=== PATIENT | male | born 1930 | race Caucasian/White ===

== ENCOUNTER → 2016-12-22 | Outpatient (REF) | payer MEDICARE, MEDICAID ==
[~2016-12-22] MED LIST: ACET650T2 PO; AGGR1CAP PO; ALEV220C2 PO; AMLO10TA2 PO; ASPI32ECTA PO; FERR325T PO; FURO20TA2 PO; GABA-279 PO; GABA300C3 PO; IMOD2TAB16 PO; LEVO25TA34 PO; LISI10TA4 PO; LISI20TA PO; MIRT1TAB PO; OMEP40CA2 PO; SERT-138 PO; SERT-141 PO; SIME80TA PO; TAMS0.4C2 PO; TYLE650T25 PO; VITA10002 PO; VITA100066 PO; VITA100072 PO; XARE15TA PO
== END ==
LOC: M LAB REF 12:27
PROVIDERS: ATTEND Nurse Practitioner Adult Health
DX: R20.9 Unspecified disturbances of skin sensation (principal); R39.15 Urgency of urination

== ENCOUNTER 2017-04-16 14:52 | Emergency (ER) | payer MEDICARE, MEDICAID ==
[~2017-04-16 14:52] MED LIST changes: +GABA-282 PO; -GABA300C3 PO; -SERT-141 PO; +SERT50TA PO
[2017-04-16] MEDS ORDERED: TORS20TA2 PO (15:25)
[2017-04-16] MEDS ORDERED: DONETAB6 PO (15:25)
[2017-04-16 16:03] LABS: BASO % 0.3 % (0.0-1.0); EOS # 0.6 K/mm3 (0.0-0.50); EOS % 7.1 % (0.0-3.0); LARGE UNSTAINED CELL # 0.1 K/mm3 (0.0-0.4); LARGE UNSTAINED CELL % 1.2 % (0.0-4.0); LYMPH # 1.1 K/mm3 (1.5-4.5); LYMPH % 12.7 % (24.0-44.0); MEAN CORPUSCULAR HEMOGLOBIN 28.2 pg (27.0-33.0); MEAN CORPUSCULAR VOLUME 85.3 fl (80.0-96.0); MONO # 0.5 K/mm3 (0.0-0.8); MONO % 5.7 % (0.0-5.0); NEUTROPHILS # 5.9 K/mm3 (1.8-7.7); NEUTROPHILS % 73.1 % (36.0-66.0); PLATELET COUNT, AUTOMATED 168 k/mm3 (150-450); RED CELL DISTRIBUTION WIDTH 15.1 % (11.5-14.5); WHITE BLOOD COUNT 8.1 K/mm3 (4.0-10.0)
[2017-04-16 16:45] LABS: CALCIUM LEVEL 9.3 MG/DL (8.8-10.2); CREATININE FOR GFR 1.48 MG/DL (0.70-1.30); POTASSIUM SERUM 4.4 MEQ/L (3.5-5.1)
--- NOTE | 2017-04-16 16:51 | REP ---
Portable chest x-ray: Single view: History: Chest pain. Comparison chest x-rays from 06/25/2016. Findings: EKG monitoring electrodes overlie the chest. The patient status post prior sternotomy. Heart is not enlarged. Right hemidiaphragm is a little elevated. No acute infiltrate is seen. There are a few loops of air-filled bowel in the left upper abdomen. The appearance of the left hemidiaphragm suggests the presence of free intraperitoneal air. This is similar in appearance to the radiographs taken at the time of one previous CT studies have shown marked pneumatosis and possible free air. Impression: Findings suggestive of uncontained free intraperitoneal air under the left hemidiaphragm. Prior sternotomy. Otherwise no acute disease. Findings discussed with Dr. Whyte on the telephone at the time of this dictation. Signed by Sudarshan Goss MD 04/16/2017 04:55 P
[2017-04-16] MEDS ORDERED: GASTROGRAFIN SOLUTION 30ML (Q9963) PO ONE (17:25)
[2017-04-16] MEDS ORDERED: GASTROGRAFIN SOLUTION 30ML PO ONE (17:55)
[2017-04-16] MEDS ORDERED: ISOVUE-370 76% 100ML VIAL (Q9967) As Ordered ONE (18:38)
--- NOTE | 2017-04-16 19:50 | REPUSA ---
CLINICAL HISTORY: Free air on chest x-ray. TECHNIQUE: Multiple axial CT images were obtained through the abdomen and pelvis after administratio n of IV contrast material. FINDINGS: Comparison is made with the prior study dated 07/16/2016. 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 There are areas of free air present under the right hem idiaphragm. There are scattered areas of air noted throughout the peritoneum. The liver is of uniform attenuation without mass or defect. There is no intra or extrahepatic biliar y ductal dilatation. Multiple calcified splenic granulomas are present. Status post cholecystecto my. The pancreas is of normal contour and attenuation characteristics. There is no evidence of adre nal mass. The kidneys are normal in size, shape and configuration. No renal or ureteral calculi are identified . There is no hydroureter or hydronephrosis. There is no evidence for appendicitis. There is no bowel wall thickening. No evidence for small or large bowel obstruction. There is no evidence of abdominal ascites or lymphadenopathy. Status post ventral abdominal hernia repair. Small fat containing umbilical hernia is noted. There is no evidence of intrinsic or extrinsic bladder mass. There is no pelvic ascites or lymphaden opathy. The prostate gland is mildly enlarged containing calcifications. Images of the lung bases show no evidence of pleural or parenchymal mass. There are no pleural effus ions. There is mild increase in interstitial lung markings present throughout the visualized lung f ields suggesting pulmonary fibrosis. The bony structures are free of lytic or blastic lesions. IMPRESSION: A large amount of free air which is a chronic process. This was seen on the prior study but has pro gressed. Additional findings as above. Thank you for your kind referral of this patient. We appreciate the opportunity to participate in thi s patient's care.
[2017-04-16 20:47] VITALS: BP 152/95
--- NOTE | 2017-04-17 15:06 | ED PDOC ---
Post-Departure Follow-Up DR DANIELS FAXED FORMAL REPORT OF CT ABD/P FOR FU Zay Richter MD Apr 17, 2017 15:06
--- NOTE | 2017-04-18 19:12 | ECGEPIP ---
Stationary ECG Study 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
== END 2017-04-16 20:48 | disposition home or self-care (01) ==
LOC: M ED 17:18
DX: K63.89 Other specified diseases of intestine (principal); F03.90 Unspecified dementia, unspecified severity, without behavioral disturbance, psychotic disturbance, mood disturbance, and anxiety; I11.0 Hypertensive heart disease with heart failure; I48.91 Unspecified atrial fibrillation; I25.10 Atherosclerotic heart disease of native coronary artery without angina pectoris; I50.9 Heart failure, unspecified; Z86.73 Personal history of transient ischemic attack (TIA), and cerebral infarction without residual deficits; Z90.49 Acquired absence of other specified parts of digestive tract; Z79.899 Other long term (current) drug therapy
CPT/HCPCS: 36415; 71010; 74177; 80048; 82550; 82553; 84443; 84484; 85025; 93005; 93041; 94760; 99285; Q9963; Q9967

== ENCOUNTER → 2017-05-04 | Outpatient (REF) | payer MEDICARE, MEDICAID ==
[~2017-05-04] MED LIST changes: +DONETAB6 PO; +TORS20TA2 PO
[2017-05-04 11:00] LABS: ALBUMIN 3.4 GM/DL (3.2-5.2); ALBUMIN/GLOBULIN RATIO 0.97 (1.00-1.93); BILIRUBIN,TOTAL 0.4 MG/DL (0.2-1.0); CALCIUM LEVEL 8.7 MG/DL (8.8-10.2); CREATININE FOR GFR 1.4 MG/DL (0.70-1.30); POTASSIUM SERUM 4.3 MEQ/L (3.5-5.1); TOTAL PROTEIN 6.9 GM/DL (6.4-8.2)
== END ==
PROVIDERS: ATTEND Nurse Practitioner Family
DX: I50.9 Heart failure, unspecified (principal)

== ENCOUNTER → 2017-06-15 | Outpatient (REF) | payer MEDICARE, MEDICAID ==
[~2017-06-15] MED LIST changes: -ACET650T2 PO; +ACET650T3 PO; +ASPI325T24 PO; -ASPI32ECTA PO; +FERR1TAB8 PO; -FERR325T PO
[2017-06-15 11:15] LABS: ALBUMIN 3.5 GM/DL (3.2-5.2); ALBUMIN/GLOBULIN RATIO 1.21 (1.00-1.93); BILIRUBIN,TOTAL 0.3 MG/DL (0.2-1.0); CALCIUM LEVEL 8.3 MG/DL (8.8-10.2); CREATININE FOR GFR 1.29 MG/DL (0.70-1.30); GLOMERULAR FILTRATION RATE 56.1 (>35); POTASSIUM SERUM 3.7 MEQ/L (3.5-5.1); TOTAL PROTEIN 6.4 GM/DL (6.4-8.2)
== END ==
PROVIDERS: ATTEND Nurse Practitioner Family
DX: R60.0 Localized edema (principal); M79.669 Pain in unspecified lower leg

== ENCOUNTER → 2017-07-06 | Outpatient (REF) | payer MEDICARE, MEDICAID ==
[2017-07-06 11:02] LABS: ALBUMIN 3.1 GM/DL (3.2-5.2); ALBUMIN/GLOBULIN RATIO 0.97 (1.00-1.93); BILIRUBIN,TOTAL 0.3 MG/DL (0.2-1.0); CALCIUM LEVEL 8.7 MG/DL (8.8-10.2); CREATININE FOR GFR 1.44 MG/DL (0.70-1.30); GLOMERULAR FILTRATION RATE 49.4 (>35); POTASSIUM SERUM 3.9 MEQ/L (3.5-5.1); TOTAL PROTEIN 6.3 GM/DL (6.4-8.2)
== END ==
PROVIDERS: ATTEND Nurse Practitioner Family
DX: I50.9 Heart failure, unspecified (principal)

== ENCOUNTER → 2017-07-14 | Outpatient (REF) | payer MEDICARE, MEDICAID ==
[2017-07-14 20:21] LABS: FOLATE 16.2 NG/ML
== END ==
LOC: M LAB REF 16:45
PROVIDERS: ATTEND Internal Medicine
DX: G60.9 Hereditary and idiopathic neuropathy, unspecified (principal)

== ENCOUNTER 2017-09-01 09:16 | Outpatient (RCR) | payer MEDICARE, MEDICAID | END 2017-09-07 | LOC: M PT 09:16 | PROVIDERS: ATTEND Nurse Practitioner Family | DX: R26.81 Unsteadiness on feet (principal) | CPT/HCPCS: 97110; 97112; 97162; 97530; G8978; G8979 ==

== ENCOUNTER 2017-09-08 09:14 | Outpatient (RCR) | payer MEDICARE, MEDICAID ==
[2017-09-30] MEDS ORDERED: PREG100CA PO (17:54)
[2017-09-30] MEDS ORDERED: TOPR25TA PO (17:54)
[2017-09-30] MEDS ORDERED: DIGO0.12 PO (17:54)
[2017-09-30] MEDS ORDERED: PREG50CA PO (18:52)
[2017-09-30] MEDS ORDERED: TUMS500C PO (18:52)
[2017-09-30] MEDS ORDERED: BENCRE3 TOP (18:52)
[2017-09-30] MEDS ORDERED: BENZ100C5 PO (18:52)
[2017-09-30] MEDS ORDERED: MIRA33504 PO (18:52)
[2017-10-11] MEDS ORDERED: TORS20TA2 PO (08:56)
[2017-10-11] MEDS ORDERED: LISI-542 PO (08:56)
== END 2017-10-07 ==
LOC: M PT 09:14
PROVIDERS: ATTEND Nurse Practitioner Family
DX: R26.81 Unsteadiness on feet (principal)

== ENCOUNTER 2017-09-30 17:29 | Inpatient (IN) | payer MEDICARE, MEDICAID ==
[2017-09-30 17:58] LABS: BASO % 0.3 % (0.0-1.0); EOS # 0.2 10^3/uL (0.0-0.50); EOS % 1.6 % (0.0-3.0); IMMATURE GRANULOCYTE % 0.3 % (0-0); LYMPH % 7.3 % (24.0-44.0); MEAN CORPUSCULAR HEMOGLOBIN 27.9 pg (27.0-33.0); MEAN CORPUSCULAR HGB CONC 33.2 g/dl (32.0-36.5); MONO # 0.8 10^3/uL (0.0-0.8); MONO % 6.2 % (0.0-5.0); NEUTROPHILS # 11.3 10^3/uL (1.8-7.7); NEUTROPHILS % 84.3 % (36.0-66.0); PLATELET COUNT, AUTOMATED 170 10^3/uL (150-450); RED CELL DISTRIBUTION WIDTH 15.9 % (11.5-14.5); WHITE BLOOD COUNT 13.4 10^3/uL (4.0-10.0)
[2017-09-30 18:00] LABS: VENOUS BASE EXCESS -1.3 (-2.0-2.0); VENOUS O2 SATURATION 40.5 % (60.0-80.0); VENOUS PARTIAL PRESSURE CO2 40.2 mmHg (38.0-50.0); VENOUS STANDARD HCO3 21.9 MEQ/L; VENOUS TOTAL CO2 24.8 MEQ/L (24.0-28.0)
[2017-09-30 18:18] LABS: INR 1.09
[2017-09-30 18:25] LABS: ALBUMIN 3.6 GM/DL (3.2-5.2); ALKALINE PHOSPHATASE 108 U/L (45-117); ALT/SGPT 27 U/L (12-78); ANION GAP 8 MEQ/L (8-16); AST/SGOT 38 U/L (7-37); BILIRUBIN,DIRECT 0.1 MG/DL (0.0-0.2); BILIRUBIN,TOTAL 0.3 MG/DL (0.2-1.0); BLOOD UREA NITROGEN 21 MG/DL (7-18); CALCIUM LEVEL 8.9 MG/DL (8.8-10.2); CARBON DIOXIDE LEVEL 32 MEQ/L (21-32); CHLORIDE LEVEL 103 MEQ/L (98-107); CREATININE FOR GFR 1.47 MG/DL (0.70-1.30); GLOMERULAR FILTRATION RATE 48.2 (>35); GLUCOSE, FASTING 122 MG/DL (83-110); POTASSIUM SERUM 3.9 MEQ/L (3.5-5.1); SODIUM LEVEL 143 MEQ/L (136-145); TOTAL PROTEIN 7.6 GM/DL (6.4-8.2)
[2017-09-30 18:28] LABS: LACTIC ACID SEPSIS PROTOCOL 2.5 MMOL/L (0.4-2.0)
[2017-09-30] MEDS: CEFTRIAXONE SOD 2 GM in APPROPRIATE DILUENT 1 EA IV (18:44)
[2017-09-30 19:00] LABS: DIGOXIN LEVEL 0.6 NG/ML (0.5-2.0)
[2017-09-30] MEDS: ALBUTEROL SULFATE 2.5 MG/0.5 ML INH NEB SOLN NEB (19:15)
[2017-09-30] MEDS: PIPERACILLIN/TAZOBACTAM SOD 3.375 GM in APPROPRIATE DILUENT 1 EA IV (21:00)
[2017-09-30] MEDS: VANCOMYCIN HCL 1,000 MG, VIAL MATE ADAPTER 1 EACH in D5W 250 ML IV (22:00)
[2017-09-30] MEDS: SODIUM CHLORIDE 0.9% 1000 ML IV (23:00)
[2017-09-30] MEDS ORDERED: IPRATROPIUM 0.5MG/ALBUTEROL 2.5MG INH SOL UD 3ML (DUONEB)(J7620) NEB (23:30)
[2017-10-01] MEDS: ASPIRIN 81 MG CHEW TABLET PO (01:14)
[2017-10-01] MEDS: GABAPENTIN 300 MG CAP PO ×4 (01:15→20:40)
[2017-10-01] MEDS: PREGABALIN 50 MG CAP (LYRICA) PO ×3 (01:15→20:40)
[2017-10-01] MEDS: NS 1,000 ML IV (01:15)
[2017-10-01] MEDS: RIVAROXABAN 15 MG TAB (XARELTO) PO ×2 (01:15→18:14)
[2017-10-01] MEDS: VANCOMYCIN HCL 1,000 MG, VIAL MATE ADAPTER 1 EACH in D5W 250 ML IV (01:16)
[2017-10-01] MEDS: MIRTAZAPINE 7.5MG PER 1/2 TABLET PO ×2 (01:23→20:40)
[2017-10-01 03:21] LABS: LACTIC ACID SEPSIS PROTOCOL 1.7 MMOL/L (0.4-2.0)
[2017-10-01 03:23] LABS: ANION GAP 8 MEQ/L (8-16); BLOOD UREA NITROGEN 23 MG/DL (7-18); CARBON DIOXIDE LEVEL 27 MEQ/L (21-32); CHLORIDE LEVEL 105 MEQ/L (98-107); CREATININE FOR GFR 1.35 MG/DL (0.70-1.30); GLOMERULAR FILTRATION RATE 53.2 (>35); GLUCOSE, FASTING 159 MG/DL (83-110); POTASSIUM SERUM 3.4 MEQ/L (3.5-5.1); SODIUM LEVEL 140 MEQ/L (136-145)
[2017-10-01] MEDS: ACETAMINOPHEN TAB 650MG DOSE (2X325MG) PO ×2 (05:09→20:41)
[2017-10-01] MEDS: LEVOTHYROXINE 50MCG TABLET (0.05MG) PO (05:09)
[2017-10-01] MEDS: LISINOPRIL 10 MG TAB PO (08:35)
[2017-10-01] MEDS: METOPROLOL SUCC *XL* 25MG TAB (TopROL *XL*) PO (08:35)
[2017-10-01] MEDS: TORSEMIDE 20 MG TAB PO (08:36)
[2017-10-01] MEDS: OMEPRAZOLE 20 MG CAP PO (08:36)
[2017-10-01] MEDS: SERTRALINE HCL 25 MG TABLET PO (08:36)
[2017-10-01] MEDS: DIGOXIN 0.125 MG TAB PO (08:36)
[2017-10-01] MEDS: FERROUS SULFATE 325MG TAB PO (08:36)
[2017-10-01] MEDS ORDERED: CEFTAROLINE FOSAMIL 600 MG in APPROPRIATE DILUENT 1 EA IV (12:00)
[2017-10-01 12:13] LABS: MEAN CORPUSCULAR HGB CONC 33.3 g/dl (32.0-36.5); PLATELET COUNT, AUTOMATED 124 10^3/uL (150-450); RED CELL DISTRIBUTION WIDTH 15.9 % (11.5-14.5)
[2017-10-01] MEDS: CEFTAROLINE FOSAMIL 400 MG in APPROPRIATE DILUENT 1 EA IV (12:19)
[2017-10-02] MEDS: CEFTAROLINE FOSAMIL 400 MG in APPROPRIATE DILUENT 1 EA IV ×2 (00:42→11:42)
[2017-10-02 05:28] LABS: MEAN CORPUSCULAR HEMOGLOBIN 27.6 pg (27.0-33.0); MEAN CORPUSCULAR HGB CONC 33.3 g/dl (32.0-36.5); PLATELET COUNT, AUTOMATED 126 10^3/uL (150-450); RED CELL DISTRIBUTION WIDTH 15.9 % (11.5-14.5); WHITE BLOOD COUNT 12.6 10^3/uL (4.0-10.0)
[2017-10-02] MEDS: LEVOTHYROXINE 50MCG TABLET (0.05MG) PO (05:36)
[2017-10-02 05:47] LABS: ALBUMIN 2.8 GM/DL (3.2-5.2); ALBUMIN/GLOBULIN RATIO 0.74 (1.00-1.93); ALKALINE PHOSPHATASE 75 U/L (45-117); ALT/SGPT 19 U/L (12-78); ANION GAP 7 MEQ/L (8-16); AST/SGOT 21 U/L (7-37); BILIRUBIN,TOTAL 0.5 MG/DL (0.2-1.0); BLOOD UREA NITROGEN 20 MG/DL (7-18); CALCIUM LEVEL 8.7 MG/DL (8.8-10.2); CARBON DIOXIDE LEVEL 30 MEQ/L (21-32); CHLORIDE LEVEL 104 MEQ/L (98-107); CREATININE FOR GFR 1.25 MG/DL (0.70-1.30); GLOMERULAR FILTRATION RATE 58.2 (>35); GLUCOSE, FASTING 99 MG/DL (83-110); POTASSIUM SERUM 3.5 MEQ/L (3.5-5.1); SODIUM LEVEL 141 MEQ/L (136-145); TOTAL PROTEIN 6.6 GM/DL (6.4-8.2)
[2017-10-02] MEDS: OMEPRAZOLE 20 MG CAP PO (08:24)
[2017-10-02] MEDS: FERROUS SULFATE 325MG TAB PO (08:24)
[2017-10-02] MEDS: GABAPENTIN 300 MG CAP PO ×3 (08:24→22:01)
[2017-10-02] MEDS: METOPROLOL SUCC *XL* 25MG TAB (TopROL *XL*) PO (08:24)
[2017-10-02] MEDS: SERTRALINE HCL 25 MG TABLET PO (08:24)
[2017-10-02] MEDS: PREGABALIN 50 MG CAP (LYRICA) PO ×2 (08:25→22:01)
[2017-10-02] MEDS: DIGOXIN 0.125 MG TAB PO (08:25)
[2017-10-02] MEDS: POLYVINYL ALCOHOL OPHTH SOLN 15 ML(LIQUITEARS) OU (11:42)
[2017-10-02] MEDS: RIVAROXABAN 15 MG TAB (XARELTO) PO (17:31)
[2017-10-02] MEDS: ACETAMINOPHEN TAB 650MG DOSE (2X325MG) PO (17:41)
[2017-10-02] MEDS: MIRTAZAPINE 7.5MG PER 1/2 TABLET PO (22:01)
[2017-10-03] MEDS: CEFTAROLINE FOSAMIL 400 MG in APPROPRIATE DILUENT 1 EA IV ×3 (00:41→23:46)
[2017-10-03 04:40] LABS: MEAN CORPUSCULAR HEMOGLOBIN 27.4 pg (27.0-33.0); MEAN CORPUSCULAR HGB CONC 32.9 g/dl (32.0-36.5); MEAN CORPUSCULAR VOLUME 83.1 fl (80.0-96.0); PLATELET COUNT, AUTOMATED 143 10^3/uL (150-450); RED CELL DISTRIBUTION WIDTH 15.9 % (11.5-14.5); WHITE BLOOD COUNT 10.1 10^3/uL (4.0-10.0)
[2017-10-03 05:01] LABS: ALBUMIN 2.9 GM/DL (3.2-5.2); ALBUMIN/GLOBULIN RATIO 0.78 (1.00-1.93); ALKALINE PHOSPHATASE 72 U/L (45-117); ALT/SGPT 16 U/L (12-78); ANION GAP 8 MEQ/L (8-16); AST/SGOT 19 U/L (7-37); BILIRUBIN,TOTAL 0.6 MG/DL (0.2-1.0); BLOOD UREA NITROGEN 18 MG/DL (7-18); CALCIUM LEVEL 9.1 MG/DL (8.8-10.2); CARBON DIOXIDE LEVEL 28 MEQ/L (21-32); CHLORIDE LEVEL 105 MEQ/L (98-107); CREATININE FOR GFR 1.21 MG/DL (0.70-1.30); GLOMERULAR FILTRATION RATE > 60.0 (>35); GLUCOSE, FASTING 107 MG/DL (83-110); POTASSIUM SERUM 3.8 MEQ/L (3.5-5.1); SODIUM LEVEL 141 MEQ/L (136-145); TOTAL PROTEIN 6.6 GM/DL (6.4-8.2)
[2017-10-03] MEDS: LEVOTHYROXINE 50MCG TABLET (0.05MG) PO (06:10)
[2017-10-03] MEDS: ACETAMINOPHEN TAB 650MG DOSE (2X325MG) PO ×2 (06:10→21:29)
[2017-10-03 07:43] LABS: MAGNESIUM LEVEL 1.7 MG/DL (1.8-2.4)
[2017-10-03] MEDS: OMEPRAZOLE 20 MG CAP PO (08:24)
[2017-10-03] MEDS: FERROUS SULFATE 325MG TAB PO (08:25)
[2017-10-03] MEDS: SERTRALINE HCL 25 MG TABLET PO (08:25)
[2017-10-03] MEDS: METOPROLOL SUCC *XL* 25MG TAB (TopROL *XL*) PO (08:25)
[2017-10-03] MEDS: PREGABALIN 50 MG CAP (LYRICA) PO ×2 (08:25→21:29)
[2017-10-03] MEDS: DIGOXIN 0.125 MG TAB PO (08:26)
[2017-10-03] MEDS: GABAPENTIN 300 MG CAP PO ×3 (08:26→21:29)
[2017-10-03] MEDS: POLYVINYL ALCOHOL OPHTH SOLN 15 ML(LIQUITEARS) OU (08:27)
[2017-10-03] MEDS: RIVAROXABAN 15 MG TAB (XARELTO) PO (16:58)
[2017-10-03] MEDS: MIRTAZAPINE 7.5MG PER 1/2 TABLET PO (21:29)
[2017-10-04 05:32] LABS: MEAN CORPUSCULAR HEMOGLOBIN 27.5 pg (27.0-33.0); MEAN CORPUSCULAR HGB CONC 33.2 g/dl (32.0-36.5); MEAN CORPUSCULAR VOLUME 82.8 fl (80.0-96.0); PLATELET COUNT, AUTOMATED 154 10^3/uL (150-450); RED CELL DISTRIBUTION WIDTH 15.5 % (11.5-14.5); WHITE BLOOD COUNT 9.4 10^3/uL (4.0-10.0)
[2017-10-04 05:53] LABS: ALBUMIN 2.7 GM/DL (3.2-5.2); ALBUMIN/GLOBULIN RATIO 0.68 (1.00-1.93); ALKALINE PHOSPHATASE 67 U/L (45-117); ALT/SGPT 15 U/L (12-78); ANION GAP 7 MEQ/L (8-16); AST/SGOT 19 U/L (7-37); BILIRUBIN,TOTAL 0.6 MG/DL (0.2-1.0); BLOOD UREA NITROGEN 15 MG/DL (7-18); CARBON DIOXIDE LEVEL 28 MEQ/L (21-32); CHLORIDE LEVEL 105 MEQ/L (98-107); CREATININE FOR GFR 1.04 MG/DL (0.70-1.30); GLOMERULAR FILTRATION RATE > 60.0 (>35); GLUCOSE, FASTING 104 MG/DL (83-110); POTASSIUM SERUM 3.7 MEQ/L (3.5-5.1); SODIUM LEVEL 140 MEQ/L (136-145); TOTAL PROTEIN 6.7 GM/DL (6.4-8.2)
[2017-10-04] MEDS: LEVOTHYROXINE 50MCG TABLET (0.05MG) PO (06:25)
[2017-10-04 07:56] LABS: MAGNESIUM LEVEL 1.9 MG/DL (1.8-2.4)
[2017-10-04] MEDS: OMEPRAZOLE 20 MG CAP PO (09:33)
[2017-10-04] MEDS: PREGABALIN 50 MG CAP (LYRICA) PO ×2 (09:33→21:25)
[2017-10-04] MEDS: SERTRALINE HCL 25 MG TABLET PO (09:33)
[2017-10-04] MEDS: GABAPENTIN 300 MG CAP PO ×3 (09:33→21:25)
[2017-10-04] MEDS: DIGOXIN 0.125 MG TAB PO (09:34)
[2017-10-04] MEDS: FERROUS SULFATE 325MG TAB PO (09:34)
[2017-10-04] MEDS: METOPROLOL SUCC *XL* 25MG TAB (TopROL *XL*) PO (09:34)
[2017-10-04] MEDS: ACETAMINOPHEN TAB 650MG DOSE (2X325MG) PO ×2 (09:45→21:26)
[2017-10-04] MEDS: CEFTAROLINE FOSAMIL 400 MG in APPROPRIATE DILUENT 1 EA IV (11:59)
[2017-10-04] MEDS: RIVAROXABAN 15 MG TAB (XARELTO) PO (17:54)
[2017-10-04] MEDS: METOPROLOL SUCC *XL* 12.5MG PER 1/2 TAB (TopROL *XL*) PO (17:54)
[2017-10-04] MEDS: MIRTAZAPINE 7.5MG PER 1/2 TABLET PO (21:25)
[2017-10-05] MEDS: CEFTAROLINE FOSAMIL 400 MG in APPROPRIATE DILUENT 1 EA IV ×2 (00:36→14:16)
[2017-10-05] MEDS: LEVOTHYROXINE 50MCG TABLET (0.05MG) PO (06:04)
[2017-10-05 06:36] LABS: MEAN CORPUSCULAR HEMOGLOBIN 27.6 pg (27.0-33.0); MEAN CORPUSCULAR HGB CONC 33.2 g/dl (32.0-36.5); MEAN CORPUSCULAR VOLUME 83.1 fl (80.0-96.0); PLATELET COUNT, AUTOMATED 163 10^3/uL (150-450); RED CELL DISTRIBUTION WIDTH 15.7 % (11.5-14.5); WHITE BLOOD COUNT 10.1 10^3/uL (4.0-10.0)
[2017-10-05 06:57] LABS: ALBUMIN 2.7 GM/DL (3.2-5.2); ALBUMIN/GLOBULIN RATIO 0.64 (1.00-1.93); ALKALINE PHOSPHATASE 70 U/L (45-117); ALT/SGPT 16 U/L (12-78); ANION GAP 6 MEQ/L (8-16); AST/SGOT 21 U/L (7-37); BILIRUBIN,TOTAL 0.6 MG/DL (0.2-1.0); BLOOD UREA NITROGEN 17 MG/DL (7-18); CALCIUM LEVEL 9.3 MG/DL (8.8-10.2); CARBON DIOXIDE LEVEL 29 MEQ/L (21-32); CHLORIDE LEVEL 105 MEQ/L (98-107); GLOMERULAR FILTRATION RATE > 60.0 (>35); GLUCOSE, FASTING 101 MG/DL (83-110); POTASSIUM SERUM 4.3 MEQ/L (3.5-5.1); SODIUM LEVEL 140 MEQ/L (136-145); TOTAL PROTEIN 6.9 GM/DL (6.4-8.2)
[2017-10-05] MEDS: SERTRALINE HCL 25 MG TABLET PO (08:14)
[2017-10-05] MEDS: DIGOXIN 0.125 MG TAB PO (08:14)
[2017-10-05] MEDS: FERROUS SULFATE 325MG TAB PO (08:15)
[2017-10-05] MEDS: GABAPENTIN 300 MG CAP PO ×3 (08:15→20:45)
[2017-10-05] MEDS: OMEPRAZOLE 20 MG CAP PO (08:15)
[2017-10-05] MEDS: METOPROLOL SUCC *XL* 25MG TAB (TopROL *XL*) PO (08:15)
[2017-10-05] MEDS: PREGABALIN 50 MG CAP (LYRICA) PO ×2 (08:15→20:45)
[2017-10-05] MEDS: ACETAMINOPHEN TAB 650MG DOSE (2X325MG) PO ×2 (08:16→20:48)
[2017-10-05] MEDS: RIVAROXABAN 15 MG TAB (XARELTO) PO (17:04)
[2017-10-05 17:56] LABS: APPEARANCE, BODY FLUID TURBID (CLEAR); CRYSTALS, BODY FLUID NONE SEEN (NONE SEEN); SYNOVIAL FLUID COLOR ORANGE (YELLOW)
[2017-10-05 18:08] LABS: BF DIFF IF INDICATED? YES (NO); BF MONONUCLEAR CELL % 7.9 % (0-0); BF POLYMORPHONUCLEAR CELL % 92.1 % (0-0); RBC BODY FLUID 10 10^3/uL (<2); WBC BODY FLUID 13140 /uL (0-10)
[2017-10-05] MEDS: MIRTAZAPINE 7.5MG PER 1/2 TABLET PO (20:45)
[2017-10-06] MEDS: CEFTAROLINE FOSAMIL 400 MG in APPROPRIATE DILUENT 1 EA IV ×3 (00:04→23:33)
[2017-10-06] MEDS: LEVOTHYROXINE 50MCG TABLET (0.05MG) PO (05:37)
[2017-10-06 06:39] LABS: MEAN CORPUSCULAR HEMOGLOBIN 27.7 pg (27.0-33.0); MEAN CORPUSCULAR HGB CONC 33.2 g/dl (32.0-36.5); MEAN CORPUSCULAR VOLUME 83.4 fl (80.0-96.0); PLATELET COUNT, AUTOMATED 161 10^3/uL (150-450); RED CELL DISTRIBUTION WIDTH 15.8 % (11.5-14.5); WHITE BLOOD COUNT 11.2 10^3/uL (4.0-10.0)
[2017-10-06 06:54] LABS: ALBUMIN 2.5 GM/DL (3.2-5.2); ALBUMIN/GLOBULIN RATIO 0.57 (1.00-1.93); ALKALINE PHOSPHATASE 76 U/L (45-117); ALT/SGPT 15 U/L (12-78); ANION GAP 8 MEQ/L (8-16); AST/SGOT 18 U/L (7-37); BILIRUBIN,TOTAL 0.7 MG/DL (0.2-1.0); BLOOD UREA NITROGEN 21 MG/DL (7-18); CALCIUM LEVEL 9.4 MG/DL (8.8-10.2); CARBON DIOXIDE LEVEL 27 MEQ/L (21-32); CHLORIDE LEVEL 105 MEQ/L (98-107); CREATININE FOR GFR 1.28 MG/DL (0.70-1.30); GLOMERULAR FILTRATION RATE 56.6 (>35); GLUCOSE, FASTING 98 MG/DL (83-110); SODIUM LEVEL 140 MEQ/L (136-145); TOTAL PROTEIN 6.9 GM/DL (6.4-8.2)
[2017-10-06] MEDS: OMEPRAZOLE 20 MG CAP PO (10:37)
[2017-10-06] MEDS: SERTRALINE HCL 25 MG TABLET PO (10:38)
[2017-10-06] MEDS: GABAPENTIN 300 MG CAP PO ×3 (10:38→20:57)
[2017-10-06] MEDS: DIGOXIN 0.125 MG TAB PO (10:40)
[2017-10-06] MEDS: METOPROLOL SUCC *XL* 25MG TAB (TopROL *XL*) PO (10:40)
[2017-10-06] MEDS: FERROUS SULFATE 325MG TAB PO (10:41)
[2017-10-06] MEDS: amLODIPine 5 MG TAB PO (10:41)
[2017-10-06] MEDS: PREGABALIN 50 MG CAP (LYRICA) PO ×2 (12:22→20:57)
[2017-10-06] MEDS: RIVAROXABAN 15 MG TAB (XARELTO) PO (17:25)
[2017-10-06] MEDS: ACETAMINOPHEN TAB 650MG DOSE (2X325MG) PO (17:26)
[2017-10-06] MEDS: **hydrALAZINE** 10 MG TAB PO (18:31)
[2017-10-06] MEDS: MIRTAZAPINE 7.5MG PER 1/2 TABLET PO (20:57)
[2017-10-07] MEDS: ACETAMINOPHEN TAB 650MG DOSE (2X325MG) PO ×3 (01:48→21:51)
[2017-10-07] MEDS: LEVOTHYROXINE 50MCG TABLET (0.05MG) PO (05:29)
[2017-10-07 06:56] LABS: MEAN CORPUSCULAR HEMOGLOBIN 27.6 pg (27.0-33.0); MEAN CORPUSCULAR VOLUME 83.5 fl (80.0-96.0); PLATELET COUNT, AUTOMATED 179 10^3/uL (150-450); RED CELL DISTRIBUTION WIDTH 15.6 % (11.5-14.5); WHITE BLOOD COUNT 10.9 10^3/uL (4.0-10.0)
[2017-10-07 07:21] LABS: ALBUMIN 2.4 GM/DL (3.2-5.2); ALBUMIN/GLOBULIN RATIO 0.55 (1.00-1.93); ALKALINE PHOSPHATASE 83 U/L (45-117); ALT/SGPT 19 U/L (12-78); ANION GAP 6 MEQ/L (8-16); AST/SGOT 26 U/L (7-37); BILIRUBIN,TOTAL 0.6 MG/DL (0.2-1.0); BLOOD UREA NITROGEN 23 MG/DL (7-18); CALCIUM LEVEL 9.2 MG/DL (8.8-10.2); CARBON DIOXIDE LEVEL 26 MEQ/L (21-32); CHLORIDE LEVEL 108 MEQ/L (98-107); CREATININE FOR GFR 1.23 MG/DL (0.70-1.30); GLOMERULAR FILTRATION RATE 59.3 (>35); GLUCOSE, FASTING 111 MG/DL (83-110); POTASSIUM SERUM 3.9 MEQ/L (3.5-5.1); SODIUM LEVEL 140 MEQ/L (136-145); TOTAL PROTEIN 6.8 GM/DL (6.4-8.2)
[2017-10-07] MEDS: MIRALAX *UNIT DOSE* 17GM PACKET PO (09:32)
[2017-10-07] MEDS: FERROUS SULFATE 325MG TAB PO (09:32)
[2017-10-07] MEDS: GABAPENTIN 300 MG CAP PO ×3 (09:33→21:51)
[2017-10-07] MEDS: SERTRALINE HCL 25 MG TABLET PO (09:33)
[2017-10-07] MEDS: OMEPRAZOLE 20 MG CAP PO (09:33)
[2017-10-07] MEDS: METOPROLOL SUCC *XL* 25MG TAB (TopROL *XL*) PO (09:34)
[2017-10-07] MEDS: amLODIPine 5 MG TAB PO (09:34)
[2017-10-07] MEDS: DIGOXIN 0.125 MG TAB PO (09:35)
[2017-10-07] MEDS: PREGABALIN 50 MG CAP (LYRICA) PO ×2 (10:41→21:51)
[2017-10-07] MEDS ORDERED: ISOVUE-370 76% 100ML VIAL (Q9967) As Ordered (11:36)
[2017-10-07] MEDS: CEFTAROLINE FOSAMIL 400 MG in APPROPRIATE DILUENT 1 EA IV ×2 (12:49→23:32)
[2017-10-07] MEDS: RIVAROXABAN 15 MG TAB (XARELTO) PO (17:41)
[2017-10-07] MEDS: MIRTAZAPINE 7.5MG PER 1/2 TABLET PO (21:51)
[2017-10-08] MEDS: KETOROLAC TROMETHAMINE 10 MG TAB PO (05:57)
[2017-10-08] MEDS: LEVOTHYROXINE 50MCG TABLET (0.05MG) PO (05:58)
[2017-10-08 06:11] LABS: MEAN CORPUSCULAR HEMOGLOBIN 27.4 pg (27.0-33.0); MEAN CORPUSCULAR HGB CONC 33.1 g/dl (32.0-36.5); MEAN CORPUSCULAR VOLUME 82.8 fl (80.0-96.0); PLATELET COUNT, AUTOMATED 203 10^3/uL (150-450); RED CELL DISTRIBUTION WIDTH 15.8 % (11.5-14.5); WHITE BLOOD COUNT 9.4 10^3/uL (4.0-10.0)
[2017-10-08 06:29] LABS: ALBUMIN 2.4 GM/DL (3.2-5.2); ALKALINE PHOSPHATASE 112 U/L (45-117); ALT/SGPT 40 U/L (12-78); ANION GAP 8 MEQ/L (8-16); AST/SGOT 50 U/L (7-37); BILIRUBIN,TOTAL 0.6 MG/DL (0.2-1.0); BLOOD UREA NITROGEN 23 MG/DL (7-18); CALCIUM LEVEL 9.3 MG/DL (8.8-10.2); CARBON DIOXIDE LEVEL 26 MEQ/L (21-32); CHLORIDE LEVEL 104 MEQ/L (98-107); CREATININE FOR GFR 1.12 MG/DL (0.70-1.30); GLOMERULAR FILTRATION RATE > 60.0 (>35); GLUCOSE, FASTING 100 MG/DL (83-110); POTASSIUM SERUM 4.2 MEQ/L (3.5-5.1); SODIUM LEVEL 138 MEQ/L (136-145); TOTAL PROTEIN 7.2 GM/DL (6.4-8.2)
[2017-10-08] MEDS: SERTRALINE HCL 25 MG TABLET PO (09:12)
[2017-10-08] MEDS: OMEPRAZOLE 20 MG CAP PO (09:13)
[2017-10-08] MEDS: DIGOXIN 0.125 MG TAB PO (09:23)
[2017-10-08] MEDS: FERROUS SULFATE 325MG TAB PO (09:23)
[2017-10-08] MEDS: PREGABALIN 50 MG CAP (LYRICA) PO ×2 (09:24→21:50)
[2017-10-08] MEDS: METOPROLOL SUCC *XL* 25MG TAB (TopROL *XL*) PO ×2 (09:24→22:09)
[2017-10-08] MEDS: GABAPENTIN 300 MG CAP PO ×3 (09:24→21:49)
[2017-10-08] MEDS: amLODIPine 5 MG TAB PO (09:25)
[2017-10-08] MEDS: ACETAMINOPHEN TAB 650MG DOSE (2X325MG) PO ×2 (09:28→21:52)
[2017-10-08] MEDS: LOPERAMIDE 2 MG CAP PO (09:28)
[2017-10-08] MEDS: RIVAROXABAN 15 MG TAB (XARELTO) PO (17:33)
[2017-10-08] MEDS: MIRTAZAPINE 7.5MG PER 1/2 TABLET PO (21:49)
[2017-10-09] MEDS: LEVOTHYROXINE 50MCG TABLET (0.05MG) PO (05:30)
[2017-10-09] MEDS: SERTRALINE HCL 25 MG TABLET PO (08:13)
[2017-10-09] MEDS: DIGOXIN 0.125 MG TAB PO (08:14)
[2017-10-09] MEDS: ACETAMINOPHEN TAB 650MG DOSE (2X325MG) PO ×2 (08:14→17:34)
[2017-10-09] MEDS: OMEPRAZOLE 20 MG CAP PO (08:14)
[2017-10-09] MEDS: amLODIPine 5 MG TAB PO (08:15)
[2017-10-09] MEDS: GABAPENTIN 300 MG CAP PO ×3 (08:15→20:20)
[2017-10-09] MEDS: FERROUS SULFATE 325MG TAB PO (08:15)
[2017-10-09] MEDS: PREGABALIN 50 MG CAP (LYRICA) PO ×2 (08:15→20:20)
[2017-10-09] MEDS: METOPROLOL SUCC *XL* 25MG TAB (TopROL *XL*) PO (08:16)
[2017-10-09 08:18] LABS: BASO % 0.5 % (0.0-1.0); EOS # 0.2 10^3/uL (0.0-0.50); EOS % 2.3 % (0.0-3.0); IMMATURE GRANULOCYTE % 0.5 % (0-0); LYMPH # 1.3 10^3/uL (1.5-4.5); LYMPH % 14.6 % (24.0-44.0); MEAN CORPUSCULAR HEMOGLOBIN 27.5 pg (27.0-33.0); MEAN CORPUSCULAR HGB CONC 32.9 g/dl (32.0-36.5); MEAN CORPUSCULAR VOLUME 83.7 fl (80.0-96.0); MONO # 0.7 10^3/uL (0.0-0.8); MONO % 7.7 % (0.0-5.0); NEUTROPHILS # 6.5 10^3/uL (1.8-7.7); NEUTROPHILS % 74.4 % (36.0-66.0); PLATELET COUNT, AUTOMATED 233 10^3/uL (150-450); RED CELL DISTRIBUTION WIDTH 15.8 % (11.5-14.5); WHITE BLOOD COUNT 8.7 10^3/uL (4.0-10.0)
[2017-10-09 08:41] LABS: ALBUMIN 2.6 GM/DL (3.2-5.2); ALBUMIN/GLOBULIN RATIO 0.63 (1.00-1.93); ALKALINE PHOSPHATASE 127 U/L (45-117); ALT/SGPT 53 U/L (12-78); ANION GAP 6 MEQ/L (8-16); AST/SGOT 62 U/L (7-37); BILIRUBIN,TOTAL 0.4 MG/DL (0.2-1.0); BLOOD UREA NITROGEN 24 MG/DL (7-18); CARBON DIOXIDE LEVEL 27 MEQ/L (21-32); CHLORIDE LEVEL 108 MEQ/L (98-107); CREATININE FOR GFR 0.94 MG/DL (0.70-1.30); GLOMERULAR FILTRATION RATE > 60.0 (>35); GLUCOSE, FASTING 93 MG/DL (83-110); SODIUM LEVEL 141 MEQ/L (136-145); TOTAL PROTEIN 6.7 GM/DL (6.4-8.2)
[2017-10-09] MEDS: RIVAROXABAN 15 MG TAB (XARELTO) PO (17:34)
[2017-10-09] MEDS: MIRTAZAPINE 7.5MG PER 1/2 TABLET PO (20:20)
[2017-10-10] MEDS: LEVOTHYROXINE 50MCG TABLET (0.05MG) PO (06:12)
[2017-10-10] MEDS: ACETAMINOPHEN TAB 650MG DOSE (2X325MG) PO (06:12)
[2017-10-10 06:15] LABS: MEAN CORPUSCULAR HEMOGLOBIN 27.4 pg (27.0-33.0); MEAN CORPUSCULAR HGB CONC 33.1 g/dl (32.0-36.5); MEAN CORPUSCULAR VOLUME 82.8 fl (80.0-96.0); PLATELET COUNT, AUTOMATED 255 10^3/uL (150-450); RED CELL DISTRIBUTION WIDTH 15.6 % (11.5-14.5); WHITE BLOOD COUNT 10.7 10^3/uL (4.0-10.0)
[2017-10-10 06:25] LABS: ANION GAP 7 MEQ/L (8-16); BLOOD UREA NITROGEN 23 MG/DL (7-18); CALCIUM LEVEL 8.8 MG/DL (8.8-10.2); CARBON DIOXIDE LEVEL 27 MEQ/L (21-32); CHLORIDE LEVEL 107 MEQ/L (98-107); CREATININE FOR GFR 1.11 MG/DL (0.70-1.30); GLOMERULAR FILTRATION RATE > 60.0 (>35); GLUCOSE, FASTING 97 MG/DL (83-110); POTASSIUM SERUM 4.3 MEQ/L (3.5-5.1); SODIUM LEVEL 141 MEQ/L (136-145)
[2017-10-10] MEDS: PREGABALIN 50 MG CAP (LYRICA) PO ×2 (08:56→20:08)
[2017-10-10] MEDS: amLODIPine 5 MG TAB PO (08:56)
[2017-10-10] MEDS: OMEPRAZOLE 20 MG CAP PO (08:56)
[2017-10-10] MEDS: GABAPENTIN 300 MG CAP PO ×3 (08:56→20:08)
[2017-10-10] MEDS: DIGOXIN 0.125 MG TAB PO (08:56)
[2017-10-10] MEDS: SERTRALINE HCL 25 MG TABLET PO (08:57)
[2017-10-10] MEDS: FERROUS SULFATE 325MG TAB PO (08:57)
[2017-10-10] MEDS: METOPROLOL SUCC *XL* 25MG TAB (TopROL *XL*) PO (08:57)
[2017-10-10] MEDS: LISINOPRIL 10 MG TAB PO (12:45)
[2017-10-10] MEDS: RIVAROXABAN 15 MG TAB (XARELTO) PO (17:54)
[2017-10-10] MEDS: MIRTAZAPINE 7.5MG PER 1/2 TABLET PO (20:08)
[2017-10-11] MEDS: LEVOTHYROXINE 50MCG TABLET (0.05MG) PO (05:45)
[2017-10-11 06:00] LABS: MEAN CORPUSCULAR HEMOGLOBIN 27.1 pg (27.0-33.0); MEAN CORPUSCULAR HGB CONC 32.5 g/dl (32.0-36.5); MEAN CORPUSCULAR VOLUME 83.3 fl (80.0-96.0); PLATELET COUNT, AUTOMATED 266 10^3/uL (150-450); RED CELL DISTRIBUTION WIDTH 15.8 % (11.5-14.5); WHITE BLOOD COUNT 10.8 10^3/uL (4.0-10.0)
[2017-10-11 06:22] LABS: ANION GAP 6 MEQ/L (8-16); BLOOD UREA NITROGEN 23 MG/DL (7-18); CALCIUM LEVEL 9.2 MG/DL (8.8-10.2); CARBON DIOXIDE LEVEL 28 MEQ/L (21-32); CHLORIDE LEVEL 106 MEQ/L (98-107); CREATININE FOR GFR 1.12 MG/DL (0.70-1.30); GLOMERULAR FILTRATION RATE > 60.0 (>35); GLUCOSE, FASTING 98 MG/DL (83-110); POTASSIUM SERUM 4.4 MEQ/L (3.5-5.1); SODIUM LEVEL 140 MEQ/L (136-145)
[2017-10-11] MEDS: OMEPRAZOLE 20 MG CAP PO (08:46)
[2017-10-11] MEDS: SERTRALINE HCL 25 MG TABLET PO (08:47)
[2017-10-11] MEDS: amLODIPine 5 MG TAB PO (08:47)
[2017-10-11] MEDS: METOPROLOL SUCC *XL* 25MG TAB (TopROL *XL*) PO (08:47)
[2017-10-11] MEDS: FERROUS SULFATE 325MG TAB PO (08:47)
[2017-10-11] MEDS: PREGABALIN 50 MG CAP (LYRICA) PO (08:47)
[2017-10-11] MEDS: LISINOPRIL 10 MG TAB PO (08:47)
[2017-10-11] MEDS: DIGOXIN 0.125 MG TAB PO (08:48)
[2017-10-11] MEDS: GABAPENTIN 300 MG CAP PO (08:48)
== END 2017-10-11 13:17 | DRG 871 ==
LOC: M ICU 10-01 00:22 → M PCU 10-01 17:05 → M MSPAV 10-04 16:45 → M ED 17:29 → M ED INP 21:46
PROC: 0S9D3ZZ Drainage of Left Knee Joint, Percutaneous Approach (ICD-10-PCS; principal; 2017-10-05)
DX: A41.9 Sepsis, unspecified organism (principal); J18.9 Pneumonia, unspecified organism; I50.33 Acute on chronic diastolic (congestive) heart failure; G93.41 Metabolic encephalopathy; I13.0 Hypertensive heart and chronic kidney disease with heart failure and stage 1 through stage 4 chronic kidney disease, or unspecified chronic kidney disease; K57.32 Diverticulitis of large intestine without perforation or abscess without bleeding; R65.20 Severe sepsis without septic shock; I48.91 Unspecified atrial fibrillation; I25.10 Atherosclerotic heart disease of native coronary artery without angina pectoris; E03.9 Hypothyroidism, unspecified; M19.90 Unspecified osteoarthritis, unspecified site; N40.0 Benign prostatic hyperplasia without lower urinary tract symptoms; K21.9 Gastro-esophageal reflux disease without esophagitis; F32.9 Major depressive disorder, single episode, unspecified; M10.9 Gout, unspecified; D64.9 Anemia, unspecified; F02.80 Dementia in other diseases classified elsewhere, unspecified severity, without behavioral disturbance, psychotic disturbance, mood disturbance, and anxiety; G62.9 Polyneuropathy, unspecified; Z79.899 Other long term (current) drug therapy; Z88.8 Allergy status to other drugs, medicaments and biological substances; Z86.73 Personal history of transient ischemic attack (TIA), and cerebral infarction without residual deficits; N18.9 Chronic kidney disease, unspecified; M54.2 Cervicalgia

== ENCOUNTER → 2017-10-19 | Outpatient (REF) | payer MEDICARE, MEDICAID, OTHER ==
[~2017-10-19] MED LIST changes: +BENCRE3 TOP; +BENZ100C5 PO; +DIGO0.12 PO; +LISI-542 PO; +MIRA33504 PO; +PREG100CA PO; +PREG50CA PO; +TOPR25TA PO; +TUMS500C PO
[2017-10-19 11:05] LABS: MEAN CORPUSCULAR HEMOGLOBIN 27.4 pg (27.0-33.0); MEAN CORPUSCULAR HGB CONC 31.8 g/dl (32.0-36.5); MEAN CORPUSCULAR VOLUME 86.1 fl (80.0-96.0); PLATELET COUNT, AUTOMATED 234 10^3/uL (150-450); RED CELL DISTRIBUTION WIDTH 16.4 % (11.5-14.5); WHITE BLOOD COUNT 7.4 10^3/uL (4.0-10.0)
[2017-10-19 11:27] LABS: CALCIUM LEVEL 9.1 MG/DL (8.8-10.2); CREATININE FOR GFR 1.46 MG/DL (0.70-1.30); GLOMERULAR FILTRATION RATE 48.6 (>35); POTASSIUM SERUM 4.3 MEQ/L (3.5-5.1)
== END ==
PROVIDERS: ATTEND Internal Medicine
DX: I48.91 Unspecified atrial fibrillation (principal); I50.9 Heart failure, unspecified

== ENCOUNTER → 2017-10-26 | Outpatient (REF) ==
[2017-10-26 10:28] LABS: MEAN CORPUSCULAR HEMOGLOBIN 27.4 pg (27.0-33.0); MEAN CORPUSCULAR HGB CONC 32.5 g/dl (32.0-36.5); MEAN CORPUSCULAR VOLUME 84.5 fl (80.0-96.0); PLATELET COUNT, AUTOMATED 148 10^3/uL (150-450); RED CELL DISTRIBUTION WIDTH 17.5 % (11.5-14.5); WHITE BLOOD COUNT 8.1 10^3/uL (4.0-10.0)
[2017-10-26 10:52] LABS: PERCENT SATURATION 29.5 % (19.7-50.0)
== END ==
PROVIDERS: ATTEND Internal Medicine
DX: D64.9 Anemia, unspecified (principal)

== ENCOUNTER → 2017-10-28 | Outpatient (REF) ==
[2017-10-28 11:50] LABS: MEAN CORPUSCULAR HEMOGLOBIN 27.6 pg (27.0-33.0); MEAN CORPUSCULAR HGB CONC 32.9 g/dl (32.0-36.5); PLATELET COUNT, AUTOMATED 125 10^3/uL (150-450); RED CELL DISTRIBUTION WIDTH 17.1 % (11.5-14.5); WHITE BLOOD COUNT 7.2 10^3/uL (4.0-10.0)
[2017-10-28 12:46] LABS: CALCIUM LEVEL 8.4 MG/DL (8.8-10.2); CREATININE FOR GFR 1.38 MG/DL (0.70-1.30); GLOMERULAR FILTRATION RATE 51.9 (>35); POTASSIUM SERUM 4.1 MEQ/L (3.5-5.1)
== END ==
PROVIDERS: ATTEND Internal Medicine
DX: R68.83 Chills (without fever) (principal)

== ENCOUNTER 2017-12-12 17:33 | Emergency (ER) | payer OTHER, MEDICAID, MEDICARE ==
[2017-12-12] MEDS: ADACEL/BOOSTRIX VACCINE (DIPHTH/PERTUSS/ACELL/TETANUS)0.5ML SYR (90715) IM (18:32)
[2017-12-12 18:56] LABS: BASO % 0.5 % (0.0-1.0); EOS # 0.2 10^3/uL (0.0-0.50); EOS % 2.3 % (0.0-3.0); HEMATOCRIT 43.5 % (42.0-52.0); HEMOGLOBIN 14.4 g/dl (14.0-18.0); IMMATURE GRANULOCYTE % 0.5 % (0-0); LYMPH # 1.6 10^3/uL (1.5-4.5); LYMPH % 18.9 % (24.0-44.0); MEAN CORPUSCULAR HEMOGLOBIN 28.5 pg (27.0-33.0); MEAN CORPUSCULAR HGB CONC 33.1 g/dl (32.0-36.5); MONO # 0.7 10^3/uL (0.0-0.8); MONO % 8.1 % (0.0-5.0); NEUTROPHILS % 69.7 % (36.0-66.0); PLATELET COUNT, AUTOMATED 138 10^3/uL (150-450); RED BLOOD COUNT 5.06 10^6/uL (4.30-6.10); RED CELL DISTRIBUTION WIDTH 16.5 % (11.5-14.5); WHITE BLOOD COUNT 8.6 10^3/uL (4.0-10.0)
[2017-12-12 19:13] LABS: ANION GAP 6 MEQ/L (8-16); BLOOD UREA NITROGEN 20 MG/DL (7-18); CALCIUM LEVEL 8.6 MG/DL (8.8-10.2); CARBON DIOXIDE LEVEL 33 MEQ/L (21-32); CHLORIDE LEVEL 102 MEQ/L (98-107); CREATININE FOR GFR 1.24 MG/DL (0.70-1.30); GLOMERULAR FILTRATION RATE 58.7 (>35); GLUCOSE, FASTING 109 MG/DL (70-100); POTASSIUM SERUM 3.6 MEQ/L (3.5-5.1); SODIUM LEVEL 141 MEQ/L (136-145)
[2017-12-12] MEDS: amLODIPine 5 MG TAB PO (19:15)
[2017-12-12] MEDS: hydrALAZINE INJ 20 MG/ML VIAL IV (20:30)
[2017-12-12 21:15] LABS: KETONE, URINE AUTO RFX NEGATIVE (NEGATIVE); MUCUS, URINE RFX SMALL (NEGATIVE); NITRITE, URINE AUTO RFX NEGATIVE (NEGATIVE); RBC, URINE AUTO RFX 1 /HPF (0-3); SPECIFIC GRAVITY UR AUTO RFX 1.008 (1.002-1.035); SQUAM EPITHELIAL CELL UR AURFX 0 /HPF (0-6); WBC, URINE AUTO RFX 3 /HPF (0-3)
[2017-12-12 21:16] LABS: LEUKOCYTE ESTERASE UR AUTO RFX TRACE (NEGATIVE)
== END 2017-12-12 22:07 | disposition home or self-care (01) ==
LOC: M ED 17:33
DX: S01.91XA Laceration without foreign body of unspecified part of head, initial encounter (principal); I10 Essential (primary) hypertension; W19.XXXA Unspecified fall, initial encounter; Y92.129 Unspecified place in nursing home as the place of occurrence of the external cause; Y93.89 Activity, other specified; F32.9 Major depressive disorder, single episode, unspecified; I48.91 Unspecified atrial fibrillation; Z86.73 Personal history of transient ischemic attack (TIA), and cerebral infarction without residual deficits; Z79.899 Other long term (current) drug therapy; Z88.8 Allergy status to other drugs, medicaments and biological substances
CPT/HCPCS: 90715

== ENCOUNTER → 2018-01-19 | Outpatient (REF) | payer MEDICARE, MEDICAID ==
[2018-01-19 13:51] LABS: DIGOXIN LEVEL 0.5 NG/ML (0.5-2.0)
== END ==
LOC: M LAB REF 12:12
DX: I48.0 Paroxysmal atrial fibrillation (principal)
CPT/HCPCS: 80162

== ENCOUNTER → 2018-03-04 | Outpatient (REF) | payer MEDICARE, MEDICAID ==
[2018-03-04 18:31] LABS: APPEARANCE, URINE CLEAR (CLEAR); BACTERIA, URINE AUTO NEGATIVE (NEGATIVE); BILIRUBIN, URINE AUTO NEGATIVE (NEGATIVE); BLOOD, URINE BLOOD NEGATIVE (NEGATIVE); COLOR, URINE YELLOW (YELLOW); GLUCOSE, URINE (UA) AUTO NEGATIVE (NEGATIVE); KETONE, URINE AUTO NEGATIVE (NEGATIVE); LEUKOCYTE ESTERASE, URINE AUTO TRACE (NEGATIVE); MUCUS, URINE SMALL (NEGATIVE); NITRITE, URINE AUTO NEGATIVE (NEGATIVE); PROTEIN, URINE AUTO NEGATIVE (NEGATIVE); RBC, URINE AUTO 4 /HPF (0-3); SPECIFIC GRAVITY URINE AUTO 1.012 (1.002-1.035); SQUAMOUS EPITHELIAL CELL UR AU 0 /HPF (0-6); UROBILINOGEN, URINE AUTO 0.2 mg/dL (0.0-2.0); WBC, URINE AUTO 2 /HPF (0-3)
== END ==
DX: I48.91 Unspecified atrial fibrillation (principal); I50.9 Heart failure, unspecified; R39.89 Other symptoms and signs involving the genitourinary system
CPT/HCPCS: 81001

== ENCOUNTER → 2018-03-08 | Outpatient (REF) | payer MEDICARE, MEDICAID ==
[2018-03-08 21:14] LABS: DIGOXIN LEVEL 0.7 NG/ML (0.5-2.0)
== END ==
LOC: M LAB REF 18:50
DX: I48.0 Paroxysmal atrial fibrillation (principal)
CPT/HCPCS: 80162

== ENCOUNTER 2018-04-27 23:11 | Emergency (ER) | payer MEDICARE, MEDICAID ==
[2018-04-28 00:10] LABS: ANION GAP 9 MEQ/L (8-16); BLOOD UREA NITROGEN 22 MG/DL (7-18); CALCIUM LEVEL 8.4 MG/DL (8.8-10.2); CARBON DIOXIDE LEVEL 32 MEQ/L (21-32); CHLORIDE LEVEL 103 MEQ/L (98-107); GLOMERULAR FILTRATION RATE 50.9 (>35); GLUCOSE, FASTING 109 MG/DL (70-100); POTASSIUM SERUM 3.9 MEQ/L (3.5-5.1); SODIUM LEVEL 144 MEQ/L (136-145)
[2018-04-28 00:28] LABS: BASO % 0.4 % (0.0-1.0); EOS # 0.3 10^3/uL (0.0-0.50); EOS % 3.1 % (0.0-3.0); HEMATOCRIT 40.5 % (42.0-52.0); HEMOGLOBIN 13.4 g/dl (13.5-17.5); IMMATURE GRANULOCYTE % 0.4 % (0-3.0); LYMPH # 1.2 10^3/uL (1.5-4.5); LYMPH % 14.5 % (24.0-44.0); MEAN CORPUSCULAR HEMOGLOBIN 27.5 pg (27.0-33.0); MEAN CORPUSCULAR HGB CONC 33.1 g/dl (32.0-36.5); MEAN CORPUSCULAR VOLUME 83.2 fl (80.0-96.0); MONO # 0.8 10^3/uL (0.0-0.8); MONO % 9.1 % (0.0-5.0); NEUTROPHILS # 6.1 10^3/uL (1.8-7.7); NEUTROPHILS % 72.5 % (36.0-66.0); PLATELET COUNT, AUTOMATED 131 10^3/uL (150-450); RED BLOOD COUNT 4.87 10^6/uL (4.30-6.10); RED CELL DISTRIBUTION WIDTH 16.2 % (11.5-14.5); WHITE BLOOD COUNT 8.4 10^3/uL (4.0-10.0)
== END 2018-04-28 02:05 | disposition home or self-care (01) ==
LOC: M ED 23:11
DX: J40 Bronchitis, not specified as acute or chronic (principal); R91.8 Other nonspecific abnormal finding of lung field; I48.91 Unspecified atrial fibrillation; I12.9 Hypertensive chronic kidney disease with stage 1 through stage 4 chronic kidney disease, or unspecified chronic kidney disease; E03.9 Hypothyroidism, unspecified; N18.9 Chronic kidney disease, unspecified; F03.90 Unspecified dementia, unspecified severity, without behavioral disturbance, psychotic disturbance, mood disturbance, and anxiety; Z95.1 Presence of aortocoronary bypass graft; Z88.8 Allergy status to other drugs, medicaments and biological substances; Z79.899 Other long term (current) drug therapy; Z79.01 Long term (current) use of anticoagulants
CPT/HCPCS: 71046

== ENCOUNTER → 2018-04-28 | Outpatient (REF) | payer MEDICARE, MEDICAID ==
[2018-04-28 12:44] LABS: APPEARANCE, URINE CLEAR (CLEAR); BACTERIA, URINE AUTO NEGATIVE (NEGATIVE); BILIRUBIN, URINE AUTO NEGATIVE (NEGATIVE); BLOOD, URINE BLOOD 1+ (NEGATIVE); COLOR, URINE STRAW (YELLOW); GLUCOSE, URINE (UA) AUTO NEGATIVE (NEGATIVE); KETONE, URINE AUTO NEGATIVE (NEGATIVE); LEUKOCYTE ESTERASE, URINE AUTO NEGATIVE (NEGATIVE); MUCUS, URINE SMALL (NEGATIVE); NITRITE, URINE AUTO NEGATIVE (NEGATIVE); PROTEIN, URINE AUTO NEGATIVE (NEGATIVE); RBC, URINE AUTO 1 /HPF (0-3); SPECIFIC GRAVITY URINE AUTO 1.008 (1.002-1.035); SQUAMOUS EPITHELIAL CELL UR AU 0 /HPF (0-6); UROBILINOGEN, URINE AUTO 0.2 mg/dL (0.0-2.0); WBC, URINE AUTO 1 /HPF (0-3)
== END ==
LOC: M LAB REF 12:02
DX: N39.46 Mixed incontinence (principal)
CPT/HCPCS: 81001

== ENCOUNTER → 2018-06-07 | Outpatient (REF) ==
[2018-06-07 10:08] LABS: HEMATOCRIT 43.1 % (42.0-52.0); HEMOGLOBIN 14.1 g/dl (13.5-17.5); MEAN CORPUSCULAR HEMOGLOBIN 28.1 pg (27.0-33.0); MEAN CORPUSCULAR HGB CONC 32.7 g/dl (32.0-36.5); MEAN CORPUSCULAR VOLUME 85.9 fl (80.0-96.0); PLATELET COUNT, AUTOMATED 156 10^3/uL (150-450); RED BLOOD COUNT 5.02 10^6/uL (4.30-6.10); RED CELL DISTRIBUTION WIDTH 15.9 % (11.5-14.5); WHITE BLOOD COUNT 7.3 10^3/uL (4.0-10.0)
[2018-06-07 10:44] LABS: ANION GAP 10 MEQ/L (8-16); BLOOD UREA NITROGEN 21 MG/DL (7-18); CALCIUM LEVEL 8.8 MG/DL (8.8-10.2); CARBON DIOXIDE LEVEL 32 MEQ/L (21-32); CHLORIDE LEVEL 101 MEQ/L (98-107); CREATININE FOR GFR 1.17 MG/DL (0.70-1.30); GLOMERULAR FILTRATION RATE > 60.0 (>35); GLUCOSE, FASTING 103 MG/DL (70-100); POTASSIUM SERUM 3.7 MEQ/L (3.5-5.1); SODIUM LEVEL 143 MEQ/L (136-145)
== END ==
DX: I10 Essential (primary) hypertension (principal); E03.9 Hypothyroidism, unspecified

== ENCOUNTER 2018-06-10 23:41 | Emergency (ER) | payer MEDICARE, MEDICAID, OTHER ==
[2018-06-11] MEDS: cloNIDine 0.1 MG TAB PO (00:59)
[2018-06-11] MEDS: ENALAPRIL MALEATE 5 MG TAB PO (02:27)
[2018-06-11] MEDS: **hydrALAZINE** 10 MG TAB PO (05:48)
== END 2018-06-11 07:27 | disposition home or self-care (01) ==
LOC: M ED 23:41
DX: I10 Essential (primary) hypertension (principal); I48.91 Unspecified atrial fibrillation; K21.9 Gastro-esophageal reflux disease without esophagitis; D50.9 Iron deficiency anemia, unspecified; Z95.1 Presence of aortocoronary bypass graft; Z88.8 Allergy status to other drugs, medicaments and biological substances; Z79.899 Other long term (current) drug therapy; Z79.01 Long term (current) use of anticoagulants

== ENCOUNTER 2018-06-14 17:12 | Inpatient (IN) | payer MEDICARE, MEDICAID ==
[2018-06-14 18:27] LABS: INR 1.17; PROTHROMBIN TIME 15.1 SECONDS (12.1-14.4)
[2018-06-14 18:28] LABS: PARTIAL THROMBOPLASTIN TIME 37.9 SECONDS (25.4-37.6)
[2018-06-14 18:33] LABS: ANION GAP 6 MEQ/L (8-16); BLOOD UREA NITROGEN 16 MG/DL (7-18); CALCIUM LEVEL 8.7 MG/DL (8.8-10.2); CARBON DIOXIDE LEVEL 33 MEQ/L (21-32); CHLORIDE LEVEL 101 MEQ/L (98-107); CPK CREATINE PHOSPHOKINASE 46 U/L (39-308); CREATININE FOR GFR 1.36 MG/DL (0.70-1.30); GLOMERULAR FILTRATION RATE 52.6 (>35); GLUCOSE, FASTING 107 MG/DL (70-100); POTASSIUM SERUM 3.5 MEQ/L (3.5-5.1); SODIUM LEVEL 140 MEQ/L (136-145); TROPONIN I 0.05 NG/ML (< 0.10)
[2018-06-14] MEDS: **hydrALAZINE** 10 MG TAB PO ×2 (18:33)
[2018-06-14 18:34] LABS: CK-MB VALUE MASS 2.3 NG/ML (<3.6)
[2018-06-14 18:43] LABS: BEDSIDE GLUCOSE 110 MG/DL (83-110)
[2018-06-14 18:53] LABS: BASO % 0.2 % (0.0-1.0); EOS # 0.2 10^3/uL (0.0-0.50); EOS % 2.3 % (0.0-3.0); HEMOGLOBIN 13.7 g/dl (13.5-17.5); IMMATURE GRANULOCYTE % 0.7 % (0-3.0); MEAN CORPUSCULAR HEMOGLOBIN 27.8 pg (27.0-33.0); MEAN CORPUSCULAR HGB CONC 32.6 g/dl (32.0-36.5); MEAN CORPUSCULAR VOLUME 85.2 fl (80.0-96.0); MONO # 0.8 10^3/uL (0.0-0.8); MONO % 8.1 % (0.0-5.0); NEUTROPHILS # 6.8 10^3/uL (1.8-7.7); NEUTROPHILS % 68.7 % (36.0-66.0); PLATELET COUNT, AUTOMATED 148 10^3/uL (150-450); RED BLOOD COUNT 4.93 10^6/uL (4.30-6.10); RED CELL DISTRIBUTION WIDTH 15.7 % (11.5-14.5); WHITE BLOOD COUNT 9.9 10^3/uL (4.0-10.0)
[2018-06-14] MEDS ORDERED: HEPARIN SOD (PORCINE) 5000 UNITS/ML VIAL SC ×2 (20:30)
[2018-06-14] MEDS ORDERED: ACETAMINOPHEN TAB 650MG DOSE (2X325MG) PO ×2 (20:30)
[2018-06-14] MEDS ORDERED: MOM 30ML SUSPENSION UDC PO ×2 (20:45)
[2018-06-14] MEDS ORDERED: CALCIUM CARBONATE 500 MG CHEW U/D PO ×2 (20:45)
[2018-06-14] MEDS ORDERED: BISACODYL 10 MG SUPP PR ×2 (20:45)
[2018-06-14] MEDS: RIVAROXABAN 15 MG TAB (XARELTO) PO ×2 (20:59)
[2018-06-14] MEDS: amLODIPine 10 MG TAB PO ×2 (21:00)
[2018-06-14] MEDS: METOPROLOL SUCC *XL* 25MG TAB (TopROL *XL*) PO ×2 (21:01)
[2018-06-14] MEDS: SERTRALINE HCL 50 MG TAB PO ×2 (21:01)
[2018-06-14] MEDS: PREGABALIN 25 MG CAP (LYRICA) PO ×2 (21:01)
[2018-06-14] MEDS: GABAPENTIN 300 MG CAP PO ×2 (21:01)
[2018-06-14] MEDS: DONEPEZIL 5 MG TAB PO ×2 (21:28)
[2018-06-14] MEDS: hydrALAZINE INJ 20 MG/ML VIAL IV ×2 (22:07)
[2018-06-14] MEDS: DIGOXIN 0.125 MG TAB PO ×2 (23:04)
[2018-06-14 23:12] LABS: DIGOXIN LEVEL 0.9 NG/ML (0.5-2.0)
[2018-06-15] MEDS: ONDANSETRON 4MG/2ML VIAL (J2405) IV ×2 (00:11)
[2018-06-15] MEDS: LEVOTHYROXINE 75MCG TABLET (0.075MG) PO ×2 (05:14)
[2018-06-15 07:03] LABS: ANION GAP 6 MEQ/L (8-16); BLOOD UREA NITROGEN 16 MG/DL (7-18); CALCIUM LEVEL 8.5 MG/DL (8.8-10.2); CARBON DIOXIDE LEVEL 33 MEQ/L (21-32); CHLORIDE LEVEL 101 MEQ/L (98-107); CREATININE FOR GFR 1.18 MG/DL (0.70-1.30); GLOMERULAR FILTRATION RATE > 60.0 (>35); GLUCOSE, FASTING 100 MG/DL (70-100); POTASSIUM SERUM 3.5 MEQ/L (3.5-5.1); SODIUM LEVEL 140 MEQ/L (136-145)
[2018-06-15] MEDS: PREGABALIN 25 MG CAP (LYRICA) PO ×4 (08:15→20:04)
[2018-06-15] MEDS: LISINOPRIL 20 MG TAB PO ×2 (08:15)
[2018-06-15] MEDS: OMEPRAZOLE 20 MG CAP PO ×2 (08:15)
[2018-06-15] MEDS: VITAMIN D 1,000 INTERNATIONAL UNITS TABLET PO ×2 (08:15)
[2018-06-15] MEDS: TORSEMIDE 20 MG TAB PO ×2 (08:16)
[2018-06-15] MEDS: METOPROLOL SUCC *XL* 25MG TAB (TopROL *XL*) PO ×4 (08:16→20:08)
[2018-06-15] MEDS: amLODIPine 5 MG TAB PO ×2 (08:16)
[2018-06-15] MEDS ORDERED: amLODIPine 10 MG TAB PO ×2 (09:00)
[2018-06-15 11:36] LABS: BEDSIDE GLUCOSE 105 MG/DL (83-110)
[2018-06-15] MEDS: RIVAROXABAN 15 MG TAB (XARELTO) PO ×2 (18:19)
[2018-06-15] MEDS: SERTRALINE HCL 50 MG TAB PO ×2 (20:04)
[2018-06-15] MEDS: DONEPEZIL 5 MG TAB PO ×2 (20:04)
[2018-06-15] MEDS: GABAPENTIN 300 MG CAP PO ×2 (20:04)
[2018-06-15] MEDS: DIGOXIN 0.125 MG TAB PO ×2 (20:09)
[2018-06-16] MEDS: LEVOTHYROXINE 75MCG TABLET (0.075MG) PO ×2 (05:04)
[2018-06-16] MEDS: amLODIPine 5 MG TAB PO ×2 (10:00)
[2018-06-16] MEDS: OMEPRAZOLE 20 MG CAP PO ×2 (10:00)
[2018-06-16] MEDS: METOPROLOL SUCC *XL* 25MG TAB (TopROL *XL*) PO ×2 (10:00)
[2018-06-16] MEDS: PREGABALIN 25 MG CAP (LYRICA) PO ×2 (10:01)
[2018-06-16] MEDS: TORSEMIDE 20 MG TAB PO ×2 (10:01)
[2018-06-16] MEDS: LISINOPRIL 20 MG TAB PO ×2 (10:01)
[2018-06-16] MEDS: VITAMIN D 1,000 INTERNATIONAL UNITS TABLET PO ×2 (10:01)
== END 2018-06-16 14:10 | DRG 292 ==
LOC: M ED 17:12 → M ED INP 21:13 → M PCU 21:49
DX: I13.0 Hypertensive heart and chronic kidney disease with heart failure and stage 1 through stage 4 chronic kidney disease, or unspecified chronic kidney disease (principal); I50.32 Chronic diastolic (congestive) heart failure; N18.3 Chronic kidney disease, stage 3 (moderate); E03.9 Hypothyroidism, unspecified; I48.0 Paroxysmal atrial fibrillation; Z79.01 Long term (current) use of anticoagulants; K21.9 Gastro-esophageal reflux disease without esophagitis; N40.0 Benign prostatic hyperplasia without lower urinary tract symptoms; I25.10 Atherosclerotic heart disease of native coronary artery without angina pectoris; F03.90 Unspecified dementia, unspecified severity, without behavioral disturbance, psychotic disturbance, mood disturbance, and anxiety; G62.9 Polyneuropathy, unspecified; Z86.73 Personal history of transient ischemic attack (TIA), and cerebral infarction without residual deficits; Z79.899 Other long term (current) drug therapy; Z88.8 Allergy status to other drugs, medicaments and biological substances; I16.0 Hypertensive urgency; M10.9 Gout, unspecified; D50.9 Iron deficiency anemia, unspecified; Z95.1 Presence of aortocoronary bypass graft

== ENCOUNTER → 2018-06-14 | Outpatient (REF) | payer MEDICARE, MEDICAID | DX: I48.91 Unspecified atrial fibrillation (principal) ==

== ENCOUNTER 2018-06-23 07:53 | Outpatient (REF) ==
[2018-06-29 00:07] LABS: METANEPHRINE PLASMA 63 pg/mL (0-62); NORMETANEPHRINE PLASMA 126 pg/mL (0-145)
[2018-06-29 08:27] LABS: ALDOSTERONE 3.3 ng/dL (0.0-30.0)
== END 2018-06-24 ==
DX: I10 Essential (primary) hypertension (principal)

== ENCOUNTER → 2018-07-26 | Outpatient (REF) | payer MEDICARE, MEDICAID ==
[2018-07-26 12:56] LABS: HEMATOCRIT 41.4 % (42.0-52.0); HEMOGLOBIN 13.5 g/dl (13.5-17.5); MEAN CORPUSCULAR HEMOGLOBIN 27.4 pg (27.0-33.0); MEAN CORPUSCULAR HGB CONC 32.6 g/dl (32.0-36.5); MEAN CORPUSCULAR VOLUME 84.1 fl (80.0-96.0); PLATELET COUNT, AUTOMATED 185 10^3/uL (150-450); RED BLOOD COUNT 4.92 10^6/uL (4.30-6.10); RED CELL DISTRIBUTION WIDTH 15.4 % (11.5-14.5); WHITE BLOOD COUNT 6.8 10^3/uL (4.0-10.0)
[2018-07-26 14:22] LABS: ALBUMIN 3.1 GM/DL (3.2-5.2); ALBUMIN/GLOBULIN RATIO 0.91 (1.00-1.93); ALKALINE PHOSPHATASE 86 U/L (45-117); ALT/SGPT 13 U/L (12-78); ANION GAP 9 MEQ/L (8-16); AST/SGOT 14 U/L (7-37); BILIRUBIN,TOTAL 0.5 MG/DL (0.2-1.0); BLOOD UREA NITROGEN 16 MG/DL (7-18); CALCIUM LEVEL 8.6 MG/DL (8.8-10.2); CARBON DIOXIDE LEVEL 29 MEQ/L (21-32); CHLORIDE LEVEL 103 MEQ/L (98-107); CREATININE FOR GFR 1.18 MG/DL (0.70-1.30); GLOMERULAR FILTRATION RATE > 60.0 (>35); GLUCOSE, FASTING 103 MG/DL (70-100); POTASSIUM SERUM 3.7 MEQ/L (3.5-5.1); SODIUM LEVEL 141 MEQ/L (136-145); TOTAL PROTEIN 6.5 GM/DL (6.4-8.2)
== END ==
DX: R10.32 Left lower quadrant pain (principal)
CPT/HCPCS: 80053

== ENCOUNTER → 2018-09-09 | Outpatient (REF) | payer MEDICARE, MEDICAID ==
[2018-09-09 17:51] LABS: DIGOXIN LEVEL 0.1 NG/ML (0.5-2.0)
== END ==
LOC: M LAB REF 17:08
DX: I48.0 Paroxysmal atrial fibrillation (principal)
CPT/HCPCS: 80162

== ENCOUNTER → 2018-12-20 | Outpatient (REF) | payer MEDICARE, MEDICAID ==
[~2018-12-20] MED LIST changes: -AMLO10TA2 PO; +AMLO10TA5 PO; +AMLO2.5T3 PO; +AMLO5TAB6 PO; -ASPI325T24 PO; +ASPI325T25 PO; -BENCRE3 TOP; +BENG1CRE3 TOP; +BENZ-18 PO; -BENZ100C5 PO; +BIOTLIQ3 MT; +BISA10SU4 PR; +CLON0.2T PO; +CLONI1TA PO; +DONETAB5 PO; +ENEM1ENE4 PR; +GABA-1171 PO; -GABA-279 PO; -GABA-282 PO; +GABA-843 PO; +LEVO75TA34 PO; +LISI-538 PO; +METO1TAB32 PO; +MILK120011 PO; +PREG25CA PO; -TOPR25TA PO; +TOPR25TA13 PO; +TYLE325T5 PO; +ZITHTAB PO
[2018-12-20 23:55] LABS: APPEARANCE, URINE CLEAR (CLEAR); BACTERIA, URINE AUTO 1+ (NEGATIVE); BILIRUBIN, URINE AUTO NEGATIVE (NEGATIVE); BLOOD, URINE BLOOD NEGATIVE (NEGATIVE); CALCIUM OXALATE CRYSTALS SMALL; COLOR, URINE YELLOW (YELLOW); GLUCOSE, URINE (UA) AUTO NEGATIVE (NEGATIVE); KETONE, URINE AUTO NEGATIVE (NEGATIVE); LEUKOCYTE ESTERASE, URINE AUTO 2+ (NEGATIVE); MUCUS, URINE SMALL (NEGATIVE); NITRITE, URINE AUTO NEGATIVE (NEGATIVE); PROTEIN, URINE AUTO NEGATIVE (NEGATIVE); RBC, URINE AUTO 1 /HPF (0-3); SPECIFIC GRAVITY URINE AUTO 1.011 (1.002-1.035); SQUAMOUS EPITHELIAL CELL UR AU 0 /HPF (0-6); UROBILINOGEN, URINE AUTO 0.2 mg/dL (0.0-2.0); WBC, URINE AUTO 4 /HPF (0-3)
== END ==
PROVIDERS: ATTEND Nurse Practitioner Family
DX: R41.82 Altered mental status, unspecified (principal); E03.9 Hypothyroidism, unspecified; N18.9 Chronic kidney disease, unspecified; I12.9 Hypertensive chronic kidney disease with stage 1 through stage 4 chronic kidney disease, or unspecified chronic kidney disease

== ENCOUNTER → 2019-06-28 | Outpatient (REF) | payer MEDICARE, MEDICAID ==
[~2019-06-28] MED LIST changes: +ASPI-255 PO; -ASPI325T25 PO; +CYAN100049 PO; -LISI20TA PO; +LISI20TA18 PO; +SERT-141 PO; -SERT50TA PO; +TOPR25TA PO; -TOPR25TA13 PO; +VITA100018 PO; -VITA10002 PO; -VITA100072 PO
[2019-06-28 12:20] LABS: APPEARANCE, URINE HAZY (CLEAR); BACTERIA, URINE AUTO 1+ (NEGATIVE); BILIRUBIN, URINE AUTO NEGATIVE (NEGATIVE); BLOOD, URINE BLOOD NEGATIVE (NEGATIVE); COLOR, URINE YELLOW (YELLOW); GLUCOSE, URINE (UA) AUTO NEGATIVE (NEGATIVE); KETONE, URINE AUTO NEGATIVE (NEGATIVE); LEUKOCYTE ESTERASE, URINE AUTO TRACE (NEGATIVE); NITRITE, URINE AUTO NEGATIVE (NEGATIVE); PROTEIN, URINE AUTO NEGATIVE (NEGATIVE); RBC, URINE AUTO 1 /HPF (0-3); SPECIFIC GRAVITY URINE AUTO 1.014 (1.002-1.035); SQUAMOUS EPITHELIAL CELL UR AU 0 /HPF (0-6); UROBILINOGEN, URINE AUTO 0.2 mg/dL (0.0-2.0); WBC, URINE AUTO 3 /HPF (0-3)
== END ==
LOC: M LAB REF 11:57
PROVIDERS: ATTEND Internal Medicine
DX: N18.3 Chronic kidney disease, stage 3 (moderate) (principal); N39.0 Urinary tract infection, site not specified

== ENCOUNTER → 2019-07-18 | Outpatient (REF) | payer MEDICARE, MEDICAID ==
[~2019-07-18] MED LIST changes: -LISI20TA18 PO; +LISI20TA19 PO
[2019-07-18 18:18] LABS: FOLATE 20.9 NG/ML
== END ==
LOC: M LAB REF 16:28
PROVIDERS: ATTEND Internal Medicine
DX: G60.9 Hereditary and idiopathic neuropathy, unspecified (principal)

== ENCOUNTER 2019-10-21 13:12 | Emergency (ER) | payer MEDICARE, MEDICAID ==
[~2019-10-21] VITALS: Ht 180.3 cm; Wt 77.7 kg
[~2019-10-21 13:12] MED LIST changes: -DIGO0.12 PO; +DIGO0.123 PO; -OMEP40CA2 PO; +OMEP40CA97 PO
[2019-10-21] MEDS ORDERED: SIME80TA PO (13:24)
--- NOTE | 2019-10-21 14:23 | REP ---
Right hip: Two views. History: Trauma. Findings: AP and frog-leg views of the right hip show chondrocalcinosis. Femoral head is smooth and rounded joint spaces preserved. Vascular calcifications noted. No fracture or subluxation is seen. Impression: No fracture noted. Vascular calcification and chondrocalcinosis. Electronically Signed by Sudarshan Goss MD 10/21/2019 02:14 P
--- NOTE | 2019-10-21 14:26 | REP ---
Right knee series: Four views. History: Trauma. Findings: Four views of the right knee are compared with the April 25, 2014 prior study. There are multiple surgical clips in the medial soft tissues consistent with previous vein stripping or harvesting. There is chondrocalcinosis medially and laterally in the joint. There is patellar articular spurring at the inferior pole. These findings are unchanged. No sunrise view was included today. No fracture or subluxation seen. Impression: No fracture noted. Vascular calcification and chondrocalcinosis is noted. Otherwise negative four view right knee series. Electronically Signed by Sudarshan Goss MD 10/21/2019 04:13 P
--- NOTE | 2019-10-21 17:26 | REPVR ---
PROCEDURE INFORMATION: Exam: CT Right Lower Extremity Without Contrast, Hip Exam date and time: 10/21/2019 5:12 PM Age: 89 years old Clinical history: Pain; Hip; Right; Additional info: Fall, hp pain TECHNIQUE: Imaging protocol: CT of the Right lower extremity without contrast was performed. Exam focused on the hip. Radiation optimization: All CT scans at this facility use at least one of these dose optimization techniques: automated exposure control; mA and/or kV adjustment per patient size (includes targeted exams where dose is matched to clinical indication); or iterative reconstruction. COMPARISON: No relevant prior studies available. FINDINGS: Bones/joints: Osteoporosis. No hip fracture. 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 Degenerative spondylosis visualized lower lumbar spine. Soft tissues: Normal. Vasculature: The aorta and iliac arteries demonstrates moderate atherosclerotic calcification. Bowel: Impacted feces rectosigmoid. Bladder: The bladder demonstrates diffuse thickening of the bladder wall, trabeculations and diverticuli. The findings suggest changes related to chronic bladder outlet obstruction in the absence of any significant perivesicular inflammatory changes. Reproductive: Bilateral hydroceles, likely chronic. The prostate gland demonstrates mild hyperplasia. IMPRESSION: 1. No hip fracture. 2. 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 3. Bilateral hydroceles, likely chronic. 4. The bladder demonstrates chronic bladder outlet obstruction in the absence of any significant perivesicular inflammatory changes. 5. Mild prostatic hyperplasia. Electronically signed by: Cristian Gonzalez On 10/21/2019 17:25:47 PM
[2019-10-21] MEDS ORDERED: NS 500 ML IV ONE (18:00)
[2019-10-21] MEDS ORDERED: LIDOCAINE 2% 5ML JELLY UROJET TOP ONE (18:00)
[2019-10-21 18:02] LABS: BASO % 0.4 % (0.0-1.0); EOS # 0.1 10^3/uL (0.0-0.5); EOS % 0.8 % (0.0-3.0); HEMATOCRIT 45.8 % (42.0-52.0); HEMOGLOBIN 14.3 g/dl (13.5-17.5); LYMPH # 1.5 10^3/uL (1.5-5.0); LYMPH % 16.8 % (24.0-44.0); MEAN CORPUSCULAR HEMOGLOBIN 25.3 pg (27.0-33.0); MEAN CORPUSCULAR HGB CONC 31.2 g/dl (32.0-36.5); MEAN CORPUSCULAR VOLUME 81.1 fl (80.0-96.0); MONO # 0.6 10^3/uL (0.0-0.8); MONO % 6.9 % (0.0-5.0); NEUTROPHILS # 6.7 10^3/uL (1.5-8.5); NEUTROPHILS % 74.7 % (36.0-66.0); PLATELET COUNT, AUTOMATED 218 10^3/uL (150-450); RED BLOOD COUNT 5.65 10^6/uL (4.30-6.10)
[2019-10-21 18:29] LABS: ALBUMIN 3.5 GM/DL (3.2-5.2); BILIRUBIN,DIRECT 0.2 MG/DL (0.0-0.2); BILIRUBIN,TOTAL 0.3 MG/DL (0.2-1.0); CALCIUM LEVEL 8.9 MG/DL (8.8-10.2); CREATININE FOR GFR 1.47 MG/DL (0.70-1.30); POTASSIUM SERUM 3.9 MEQ/L (3.5-5.1); TOTAL PROTEIN 7.4 GM/DL (6.4-8.2)
[2019-10-21] MEDS ORDERED: ACETAMINOPHEN TAB 650MG DOSE (2X325MG) PO ONE (19:00)
--- NOTE | 2019-10-21 19:37 | REP ---
Right femur: Four views. History: Injury in a fall. Comparison is made with right hip radiographs done earlier this date. Findings: AP and frog-leg views of the proximal femur and AP and lateral views of the distal femur are presented. There is fairly extensive vascular calcification. Some diffuse osteopenia is noted. There is articular spurring at the inferior pole of the patella. No fracture or subluxation is seen. Impression: No fracture noted. Electronically Signed by Sudarshan Goss MD 10/21/2019 07:29 P
--- NOTE | 2019-10-21 19:38 | REP ---
Right ankle series: Four views. History: Injury in a fall. Comparison study: April 25, 2014. Findings: Four views right ankle demonstrate an intact ankle mortise. Heavy vascular calcification is noted. This is more pronounced than on the prior study. There is some surgical clips in the S soft tissues of the medial calf. No fracture or subluxation is seen. Impression: No fracture noted. Electronically Signed by Sudarshan Goss MD 10/21/2019 07:30 P
[2019-10-21 20:01] VITALS: BP 146/74
--- NOTE | 2019-10-22 07:27 | REP ---
CT brain without contrast: History: Struck head in a fall. Comparison head CT study June 14, 2018. Findings: Digital preliminary director of player personnel radiograph is unremarkable. Heavy vascular calcification is seen on bone window settings. The bony calvarium is intact. No skull fracture or significant scalp hematoma is appreciated. No intraorbital abnormality is seen. There is fairly extensive small vessel atherosclerotic change in the periventricular white matter. There is diffuse atrophy. There is an old lacunar infarct in the right basal ganglia. A small lacunar infarct is seen in the periventricular white matter of the frontal lobe on the right as well. These findings are unchanged. No acute infarction is seen. No intracranial hemorrhage is noted. No mass, infarct or extra-axial fluid collection is seen. Impression: Diffuse atrophy, vascular calcification, extensive small vessel changes. Old lacunar infarct. Findings are unchanged from the June 14, 2018 study. No acute intracranial abnormality. Electronically Signed by Sudarshan Goss MD 10/22/2019 08:46 A
--- NOTE | 2019-10-22 07:46 | REP ---
Right foot series: Four views. History: Injury in a fall. Findings: Four views of the right foot demonstrate mild diffuse osteopenia. Extensive vascular calcifications noted. 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 No fracture or subluxation is seen. Impression: Degenerative changes. Vascular calcification. No traumatic abnormality noted. Electronically Signed by Sudarshan Goss MD 10/22/2019 08:47 A
== END 2019-10-21 20:59 | disposition home or self-care (01) ==
LOC: M ED 13:12
DX: S79.911A Unspecified injury of right hip, initial encounter (principal); W19.XXXA Unspecified fall, initial encounter; Y92.128 Other place in nursing home as the place of occurrence of the external cause; E86.0 Dehydration; I12.0 Hypertensive chronic kidney disease with stage 5 chronic kidney disease or end stage renal disease; M11.261 Other chondrocalcinosis, right knee; M19.071 Primary osteoarthritis, right ankle and foot; M43.16 Spondylolisthesis, lumbar region; N43.3 Hydrocele, unspecified; N40.0 Benign prostatic hyperplasia without lower urinary tract symptoms; K21.9 Gastro-esophageal reflux disease without esophagitis; Z88.8 Allergy status to other drugs, medicaments and biological substances; Z79.83 Long term (current) use of bisphosphonates; Z79.891 Long term (current) use of opiate analgesic; Z79.899 Other long term (current) drug therapy

== ENCOUNTER → 2019-11-17 | Outpatient (REF) | payer MEDICARE, MEDICAID ==
[2019-11-17 10:08] LABS: HEMATOCRIT 39.7 % (42.0-52.0); HEMOGLOBIN 12.3 g/dl (13.5-17.5); MEAN CORPUSCULAR HEMOGLOBIN 25.5 pg (27.0-33.0); MEAN CORPUSCULAR VOLUME 82.2 fl (80.0-96.0); PLATELET COUNT, AUTOMATED 135 10^3/uL (150-450); RED BLOOD COUNT 4.83 10^6/uL (4.30-6.10); WHITE BLOOD COUNT 6.4 10^3/uL (4.0-10.0)
[2019-11-17 10:51] LABS: ALBUMIN 2.7 GM/DL (3.2-5.2); ALT/SGPT 11 U/L (12-78); BILIRUBIN,TOTAL 0.3 MG/DL (0.2-1.0); BLOOD UREA NITROGEN 15 MG/DL (7-18); CALCIUM LEVEL 8.2 MG/DL (8.8-10.2); CARBON DIOXIDE LEVEL 31 MEQ/L (21-32); CHLORIDE LEVEL 105 MEQ/L (98-107); CREATININE FOR GFR 1.16 MG/DL (0.70-1.30); GLOMERULAR FILTRATION RATE > 60.0 (>35); GLUCOSE, FASTING 85 MG/DL (70-100); POTASSIUM SERUM 4.3 MEQ/L (3.5-5.1); SODIUM LEVEL 142 MEQ/L (136-145); THYROID STIMULATING HORMONE 0.819 uIU/ML (0.358-3.740); TOTAL PROTEIN 5.3 GM/DL (6.4-8.2)
== END ==
PROVIDERS: ATTEND Internal Medicine
DX: E03.9 Hypothyroidism, unspecified (principal)

== ENCOUNTER → 2019-11-17 | Outpatient (REF) | payer MEDICARE, MEDICAID | PROVIDERS: ATTEND Nurse Practitioner Adult Health | DX: E03.9 Hypothyroidism, unspecified (principal) ==

== ENCOUNTER → 2019-11-17 | Outpatient (REF) | payer MEDICARE, MEDICAID | PROVIDERS: ATTEND Nurse Practitioner Adult Health | DX: Z53.9 Procedure and treatment not carried out, unspecified reason (principal) ==

== ENCOUNTER → 2019-11-20 | Outpatient (REF) | payer MEDICARE, MEDICAID ==
[2019-11-20 19:16] LABS: APPEARANCE, URINE CLEAR (CLEAR); BACTERIA, URINE AUTO NEGATIVE (NEGATIVE); BILIRUBIN, URINE AUTO NEGATIVE (NEGATIVE); BLOOD, URINE BLOOD NEGATIVE (NEGATIVE); COLOR, URINE YELLOW (YELLOW); GLUCOSE, URINE (UA) AUTO NEGATIVE (NEGATIVE); KETONE, URINE AUTO NEGATIVE (NEGATIVE); LEUKOCYTE ESTERASE, URINE AUTO NEGATIVE (NEGATIVE); NITRITE, URINE AUTO NEGATIVE (NEGATIVE); PROTEIN, URINE AUTO NEGATIVE (NEGATIVE); RBC, URINE AUTO 1 /HPF (0-3); SPECIFIC GRAVITY URINE AUTO 1.012 (1.002-1.035); SQUAMOUS EPITHELIAL CELL UR AU 0 /HPF (0-6); UROBILINOGEN, URINE AUTO 0.2 mg/dL (0.0-2.0); WBC, URINE AUTO 1 /HPF (0-3)
== END ==
PROVIDERS: ATTEND Internal Medicine
DX: R32 Unspecified urinary incontinence (principal)

== ENCOUNTER → 2019-12-21 | Outpatient (REF) | payer MEDICARE, MEDICAID ==
[2019-12-21 11:40] LABS: APPEARANCE, URINE CLEAR (CLEAR); BACTERIA, URINE AUTO NEGATIVE (NEGATIVE); BILIRUBIN, URINE AUTO NEGATIVE (NEGATIVE); BLOOD, URINE BLOOD NEGATIVE (NEGATIVE); COLOR, URINE YELLOW (YELLOW); GLUCOSE, URINE (UA) AUTO NEGATIVE (NEGATIVE); KETONE, URINE AUTO NEGATIVE (NEGATIVE); LEUKOCYTE ESTERASE, URINE AUTO NEGATIVE (NEGATIVE); NITRITE, URINE AUTO NEGATIVE (NEGATIVE); PROTEIN, URINE AUTO NEGATIVE (NEGATIVE); RBC, URINE AUTO 1 /HPF (0-3); SPECIFIC GRAVITY URINE AUTO 1.018 (1.002-1.035); SQUAMOUS EPITHELIAL CELL UR AU 0 /HPF (0-6); WBC, URINE AUTO 1 /HPF (0-3)
== END ==
PROVIDERS: ATTEND Internal Medicine
DX: N39.42 Incontinence without sensory awareness (principal)

== ENCOUNTER → 2020-02-07 | Outpatient (REF) | payer MEDICARE, MEDICAID ==
[2020-02-07 19:29] LABS: APPEARANCE, URINE CLEAR (CLEAR); BACTERIA, URINE AUTO NEGATIVE (NEGATIVE); BILIRUBIN, URINE AUTO NEGATIVE (NEGATIVE); BLOOD, URINE BLOOD NEGATIVE (NEGATIVE); COLOR, URINE YELLOW (YELLOW); GLUCOSE, URINE (UA) AUTO NEGATIVE (NEGATIVE); KETONE, URINE AUTO NEGATIVE (NEGATIVE); LEUKOCYTE ESTERASE, URINE AUTO NEGATIVE (NEGATIVE); MUCUS, URINE SMALL (NEGATIVE); NITRITE, URINE AUTO NEGATIVE (NEGATIVE); PROTEIN, URINE AUTO NEGATIVE (NEGATIVE); RBC, URINE AUTO 0 /HPF (0-3); SPECIFIC GRAVITY URINE AUTO 1.009 (1.002-1.035); SQUAMOUS EPITHELIAL CELL UR AU 0 /HPF (0-6); UROBILINOGEN, URINE AUTO 0.2 mg/dL (0.0-2.0); WBC, URINE AUTO 0 /HPF (0-3)
== END ==
PROVIDERS: ATTEND Registered Nurse
DX: R41.82 Altered mental status, unspecified (principal)

== ENCOUNTER → 2020-02-09 | Outpatient (REF) | payer MEDICARE, MEDICAID ==
[2020-02-09 14:36] LABS: BASO % 0.5 % (0.0-1.0); EOS # 0.1 10^3/uL (0.0-0.5); EOS % 1.7 % (0.0-3.0); HEMATOCRIT 39.9 % (42.0-52.0); HEMOGLOBIN 12.6 g/dl (13.5-17.5); LYMPH # 1.7 10^3/uL (1.5-5.0); LYMPH % 26.5 % (24.0-44.0); MEAN CORPUSCULAR HEMOGLOBIN 27.2 pg (27.0-33.0); MEAN CORPUSCULAR HGB CONC 31.6 g/dl (32.0-36.5); MEAN CORPUSCULAR VOLUME 86.2 fl (80.0-96.0); MONO # 0.6 10^3/uL (0.0-0.8); MONO % 9.7 % (0.0-5.0); NEUTROPHILS % 61.3 % (36.0-66.0); PLATELET COUNT, AUTOMATED 133 10^3/uL (150-450); RED BLOOD COUNT 4.63 10^6/uL (4.30-6.10); WHITE BLOOD COUNT 6.5 10^3/uL (4.0-10.0)
[2020-02-09 14:58] LABS: CALCIUM LEVEL 8.4 MG/DL (8.8-10.2); CREATININE FOR GFR 1.34 MG/DL (0.70-1.30); GLOMERULAR FILTRATION RATE 53.4 (>35); PERCENT SATURATION 13.4 % (19.7-50.0); POTASSIUM SERUM 4.3 MEQ/L (3.5-5.1)
[2020-02-09 17:58] LABS: APPEARANCE, URINE CLEAR (CLEAR); BACTERIA, URINE AUTO NEGATIVE (NEGATIVE); BILIRUBIN, URINE AUTO NEGATIVE (NEGATIVE); BLOOD, URINE BLOOD NEGATIVE (NEGATIVE); COLOR, URINE YELLOW (YELLOW); GLUCOSE, URINE (UA) AUTO NEGATIVE (NEGATIVE); KETONE, URINE AUTO NEGATIVE (NEGATIVE); LEUKOCYTE ESTERASE, URINE AUTO NEGATIVE (NEGATIVE); NITRITE, URINE AUTO NEGATIVE (NEGATIVE); PROTEIN, URINE AUTO NEGATIVE (NEGATIVE); RBC, URINE AUTO 0 /HPF (0-3); SPECIFIC GRAVITY URINE AUTO 1.017 (1.002-1.035); SQUAMOUS EPITHELIAL CELL UR AU 0 /HPF (0-6); WBC, URINE AUTO 0 /HPF (0-3)
== END ==
PROVIDERS: ATTEND Internal Medicine
DX: K92.2 Gastrointestinal hemorrhage, unspecified (principal); Z79.899 Other long term (current) drug therapy